=== PATIENT | female | born 1995 | race Caucasian/White ===

== ENCOUNTER 2020-08-11 20:55 | Emergency (ER) | payer OTHER, SELFPAY ==
--- NOTE | ~2020-08-11 | XR_ITS ---
EXAMINATION: XR chest 1V portable INDICATION: Shortness of breath and chest pain TECHNIQUE: Portable AP chest at 2224 hours COMPARISON: None available FINDINGS: Patchy bilateral airspace opacities are present. There is no pleural effusion or pneumothor ax. The cardiomediastinal silhouette is normal. The visualized osseous structures are unremarkable. IMPRESSION: 1. Patchy bilateral airspace opacities, consistent with atelectasis versus pneumonia. Reviewed, dictated and finalized at location A. IMPRESSION: 1. Patchy bilateral airspace opacities, consistent with atelectasis versus pneu monia.
[2020-08-11 20:57] VITALS: BP 139/89; PULSE 85; RESP 18; TEMP 35.8; O2SAT 100
--- NOTE | 2020-08-11 22:00 | PC.NURSE ---
assumed care of patient. report from ALIYA APONTE
--- NOTE | 2020-08-11 22:00 | ED.GENADULT ---
HPI - General Adult General Chief complaint: Unspecified Stated complaint: cold symptoms. Time Seen by Provider: 08/11/20 21:21 History of Present Illness HPI narrative: Patient is a 25-year-old female who presents ER with concern for possible infection. Reports she has been having body aches and feeling fatigued for the last 3 days. 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 She also reports she has been having frequent urination also experiencing incontinence of her urine. This is without an increased fluid intake. Denies dysuria. Patient reports emesis x1 in the last 4days that was not associate with coughing. She reports occasional dry cough but nothing persistent. She is without shortness of breath. Related Data Home Medications Medication Instructions Recorded Confirmed levothyroxine 100 mcg PO BID 08/11/20 Allergies Allergy/AdvReac Type Severity Reaction Status Date / Time No Known Allergies Allergy Unverified 08/11/20 21:00 Review of Systems Review of Systems: All systems reviewed & are unremarkable except as noted in HPI and below Constitutional: Constitutional: Reports body ache(s), Denies chills and Denies fever(s) ENT: Reports nasal congestion and Reports sore throat Respiratory: Respiratory: Denies change in phlegm color, Reports cough, Denies dyspnea and Denies wheezing Gastrointestinal: Gastrointestinal: Denies diarrhea, Denies nausea and Reports vomiting Genitourinary: Genitourinary: Reports nocturia, Denies dysuria and Reports urinary incontinence [facility] Past Medical History Medical History (Updated 08/11/20 @ 22:57 by Ji Hoang MD) Anxiety Depression Social History Social History Gender identity (if verbalized by the patient): Female Sexual Orientation (if Verbalized by the Patient): Straight or Heterosexual Exam Narrative: Exam Narrative: GENERAL: Well-appearing, obese, and in no acute distress. HEAD: Normocephalic, atraumatic. CHEST: Clear to auscultation. No respiratory distress. HEART: Regular rate and rhythm. Normal peripheral pulses. EXTREMITIES: Normal range of motion. No edema. SKIN: Warm, dry, no rash. NEURO: Alert and oriented x3. PSYCH: Normal mood and affect. Course Course Emergency Course: Patient informed of results. Will start on a Z-Jeffery given that patient is a PUI and could have required pneumonia. Discussed that she should self isolate until cleared by the health department or testing negative. Patient verbalized understanding. Vital Signs Vital signs: Vital Signs Temperature 96.5 F L 08/11/20 20:57 Pulse Rate 85 08/11/20 20:57 Respiratory Rate 18 08/11/20 20:57 Blood Pressure 139/89 08/11/20 20:57 Pulse Oximetry 100 08/11/20 20:57 Temperature 96.5 F L 08/11/20 20:57 Pulse Rate 85 08/11/20 20:57 Respiratory Rate 18 08/11/20 20:57 Blood Pressure 139/89 08/11/20 20:57 Pulse Oximetry 100 08/11/20 20:57 Medical Decision Making Vital Signs Vital Signs: Vital Signs Temperature 96.5 F L 08/11/20 20:57 Pulse Rate 85 08/11/20 20:57 Respiratory Rate 18 08/11/20 20:57 Blood Pressure 139/89 08/11/20 20:57 Pulse Oximetry 100 08/11/20 20:57 Temperature 96.5 F L 08/11/20 20:57 Pulse Rate 85 08/11/20 20:57 Respiratory Rate 18 08/11/20 20:57 Blood Pressure 139/89 08/11/20 20:57 Pulse Oximetry 100 08/11/20 20:57 Lab Data Labs: Lab Results 08/11/20 Range/Units 21:54 Urine Color Yellow (Yellow) Urine Appearance Cloudy H (Clear) Urine pH 7.0 (5.0-9.0) Ur Specific [place] 1.024 (1.001-1.035) Urine Protein 1+ H (Negative) mg/dL Urine Glucose (UA) Negative (Negative) mg/dL Urine Ketones Negative (Negative) mg/dL Ur Blood (Man) Negative (Negative) Urine Nitrate Negative (Negative) Urine Bilirubin Negative (Negative) Urine Urobilinogen Negative (<2.0) mg/dL Leukocyte Esterase R
[2020-08-11 22:07] LABS: Add Urine Microscopic? YES; Appearance Urine Cloudy (Clear); Bacteria Urine Trace /hpf; Bilirubin Urine Negative (Negative); Blood Urine Negative (Negative); Color Urine Yellow (Yellow); Glucose Urine UA Negative (Negative); Ketones Urine Negative (Negative); Leukocyte Esterase Ur Negative LEU/UL (Negative); Mucus Urine Few /lpf; Nitrate Urine Negative (Negative); Protein Urine 1+ mg/dL (Negative); RBC Urine 0-2 /hpf (0-2); Specific Grav Ur 1.024 (1.001-1.035); Squamous Epithelial Cell Urine Moderate /hpf (Few); Urobilinogen Urine Negative mg/dL (<2.0)
[2020-08-11 23:15] VITALS: BP 141/100; PULSE 84; RESP 20; O2SAT 100
[2020-08-12 17:57] LABS: SARS-CoV-2 RNA PCR Negative
== END 2020-08-11 23:17 | disposition home or self-care (01) ==
PROVIDERS: Emergency Provider Emergency Medicine
DX: J18.9 Pneumonia, unspecified organism (principal); Z20.822 Contact with and (suspected) exposure to COVID-19
CPT/HCPCS: 71045; 81001; 99283; C9803; U0003; U0005

== ENCOUNTER 2020-09-25 10:53 | Emergency (ER) | payer OTHER, SELFPAY ==
--- NOTE | ~2020-09-25 | XR_ITS ---
EXAMINATION: XR chest 2V DATE: 09/25/2020 11:25 INDICATION: Shortness of breath TECHNIQUE: PA and lateral views of the chest were obtained. COMPARISON: Chest radiograph dated 08/11/2020 FINDINGS: The lungs remain clear with no focal airspace opacities, pulmonary edema, pleural effusion or pneumot horax. The cardiomediastinal silhouette is normal. Visualized bones and soft tissues are unremarkable . IMPRESSION: 1. No acute cardiopulmonary disease. Reviewed, dictated and finalized at location A.
[2020-09-25 10:58] VITALS: BP 141/68; PULSE 76; RESP 24; TEMP 36.9; O2SAT 100
--- NOTE | 2020-09-25 11:00 | ECG_ITS ---
Measurements Intervals [place] Rate: 69 P: 27 W[place]: 163 QRS: 52 QRSD: 90 T: 29 QT: 404 QTc: 435 Interpretive Statements SINUS RHYTHM WITH SINUS ARRHYTHMIA BASELINE ARTIFACT- I, II, III, AVR, AVL, AVF, V3-V6 NORMAL ECG Electronically Signed On 09-25-2020 12:08:50 CDT by Willian Philip D.O.
[2020-09-25 11:14] LABS: Basophils Percent Auto 0.2 % (0.2-1.2); Eosinophils Absolute Auto 0.2 K/mm3 (0-0.3); Eosinophils Percent Auto 1.6 % (0-4.4); Hematocrit 37.3 % (37.0-47.0); Hemoglobin 11.8 g/dL (12.0-15.0); Immature Granulocyte Absolute 0.04 K/mm3 (0.00-0.031); Immature Granulocyte Percent A 0.4 % (0-0.5); Lymphocytes Absolute Auto 2.35 K/mm3 (0.9-3.2); Lymphocytes Percent Auto 22.1 % (18.3-44.2); Mean Corpuscular HGB Conc 31.6 g/dl (32-36); Mean Corpuscular Hemoglobin 24.5 pg (26-34); Mean Corpuscular Volume 77.5 fl (80-100); Mean Platelet Volume 9.9 fl (7.4-10.4); Monocytes Absolute Auto 0.6 K/mm3 (0.1-0.6); Monocytes Percent Auto 5.7 % (2.6-8.5); Neutrophils Absolute Auto 7.4 K/mm3 (1.3-6.7); Platelet Count Result 240 k/mm3 (150-375); Red Blood Count 4.81 M/mm3 (4.2-5.4); Red Cell Distribution Width 15.4 % (11.5-14.5); White Blood Count 10.6 K/mm3 (4.5-10.0)
[2020-09-25 11:26] LABS: Anion Gap 6 mmol/L (8-16); Blood Urea Nitrogen 14 mg/dL (7-17); Calcium 9.4 mg/dL (8.4-10.2); Carbon Dioxide 26 mmol/L (22-30); Chloride 108 mmol/L (98-107); Estimated CRCL calculation 124 ml/min; Estimated Glomerular Filt Rate > 60; Glucose 84 mg/dL (65-105); Potassium 3.6 mmol/L (3.4-5.0); Sodium 140 mmol/L (137-145)
[2020-09-25 11:38] LABS: Troponin I < 0.012 ng/mL (0.000-0.034)
[2020-09-25 11:43] LABS: Prothrombin Time 13.3 Seconds (11.1-14.7)
[2020-09-25 11:44] LABS: Partial Thromboplastin Time 29.4 SECONDS (22.3-36.8)
[2020-09-25] MEDS: KETOROLAC (*BKC) 60 MG/2 ML VIAL IM (12:21)
[2020-09-25 12:25] VITALS: BP 121/93; PULSE 60; RESP 18; TEMP 36.3; O2SAT 100
[2020-09-25 13:37] VITALS: BP 110/75; PULSE 56; RESP 18; TEMP 36.3; O2SAT 100
--- NOTE | 2020-09-25 13:41 | ED.GENADULT ---
HPI - General Adult General Chief complaint: Shortness of Breath/Dyspnea Stated complaint: cp, sob Time Seen by Provider: 09/25/20 11:02 Source: patient and RN notes reviewed Mode of arrival: ambulatory Limitations: no limitations History of Present Illness HPI narrative: Patient a 25-year-old female who presents to emergency department for evaluation of left upper chest discomfort that began while at work today worse with deep breathing. Patient notes she had vomiting yesterday after being intoxicated but those symptoms have resolved. Patient denies any URI symptoms and has not taken anything for her discomfort Related Data Home Medications Medication Instructions Recorded Confirmed levothyroxine 100 mcg PO BID 08/11/20 Allergies Allergy/AdvReac Type Severity Reaction Status Date / Time acetaminophen [From Vicodin] AdvReac Vomiting Verified 09/25/20 11:06 hydrocodone [From Vicodin] AdvReac Vomiting Verified 09/25/20 11:06 Review of Systems Review of Systems: All systems reviewed & are unremarkable except as noted in HPI and below PMFSH Past Medical History Medical History Anxiety Depression Social History Social History Gender identity (if verbalized by the patient): Female Exam Narrative: Exam Narrative: GENERAL: Well-appearing, obese, and in no acute distress. HEAD: Normocephalic, atraumatic. EYES: PERRLA and EOMI. ENT: Nares clear, no rhinorrhea or epistaxis. Mucous membranes moist. Oropharynx without tonsillar hypertrophy exudate or other lesions. NECK: Supple. No adenopathy or masses. CHEST: Clear to auscultation. No respiratory distress. No wheezes rales or rhonchi. Tenderness of the left upper chest wall no deformities HEART: Regular rate and rhythm. No murmur heard. Normal peripheral pulses. ABDOMEN: Soft, nontender, nondistended EXTREMITIES: Normal range of motion. No edema. SKIN: Warm, dry, no rash. NEURO: No focal deficits. Alert and oriented x3. PSYCH: Normal mood and affect. Course Course Emergency Course: Patient evaluated in the emergency department reproducible chest wall tenderness no high risk changes in the blood work or imaging will be discharged home placed on anti-inflammatories given reasons to follow-up Vital Signs Vital signs: Vital Signs Temperature 98.5 F 09/25/20 10:58 Pulse Rate 76 09/25/20 10:58 Respiratory Rate 24 H 09/25/20 10:58 Blood Pressure 141/68 H 09/25/20 10:58 Pulse Oximetry 100 09/25/20 10:58 Temperature 97.3 F L 09/25/20 13:37 Pulse Rate 56 L 09/25/20 13:37 Respiratory Rate 18 09/25/20 13:37 Blood Pressure 110/75 09/25/20 13:37 Pulse Oximetry 100 09/25/20 13:37 Medical Decision Making MDM Narrative Medical decision making narrative: Patients EKGs and labs are without significant high risk changes. Cardiac risk factors were reviewed. Patient is felt likely to be low risk for ACS and reasonable for further risk stratification testing as an outpatient. Pain was not sudden or maximal in onset without tearing or ripping. quality. No other signs or symptoms to suggest aortic dissection. A low-risk Wells criteria is noted. PE is felt to be unlikely. No pneumonia or URI symptoms were seen on evaluation today. Patient is felt to b reasonable for continued evaluation as an outpatient. Medical Records Medical records narrative: ITS Impressions Chest X-Ray 09/25/20 11:44 IMPRESSION: 1. No acute cardiopulmonary disease. Vital Signs Vital Signs: Vital Signs Temperature 98.5 F 09/25/20 10:58 Pulse Rate 76 09/25/20 10:58 Respiratory Rate 24 H 09/25/20 10:58 Blood Pressure 141/68 H 09/25/20 10:58 Pulse Oximetry 100 09/25/20 10:58 Temperature 97.3 F L 09/25/20 13:37 Pulse Rate 56 L 09/25/20 13:37 Respiratory Rate 18 09/25/20 13:37 Blood Pressure 110/75 09/25/20 13:37
== END 2020-09-25 13:58 | disposition home or self-care (01) ==
PROVIDERS: Emergency Provider Emergency Medicine
DX: R07.89 Other chest pain (principal)
CPT/HCPCS: 36415; 71046; 80048; 84484; 85025; 85610; 85730; 93005; 96372; 99284; J1885

== ENCOUNTER 2021-07-14 08:05 | Emergency (ER) | payer OTHER, SELFPAY ==
[2021-07-14] VITALS (18 sets, daily range): BP systolic 106–134; BP diastolic 64–84; PULSE 41–78; RESP 10–23; O2SAT 98–100
[2021-07-14] MEDS: SODIUM CHLORIDE 0.9% IV 1,000 ML 999 ML IV CONT (08:41)
[2021-07-14 08:42] LABS: Basophils Percent Auto 0.3 % (0.2-1.2); Eosinophils Absolute Auto 0.1 K/mm3 (0-0.3); Eosinophils Percent Auto 1.8 % (0-4.4); Hematocrit 38.4 % (37.0-47.0); Hemoglobin 12.9 g/dL (12.0-15.0); Immature Granulocyte Absolute 0.02 K/mm3 (0.00-0.031); Immature Granulocyte Percent A 0.3 % (0-0.5); Lymphocytes Absolute Auto 1.73 K/mm3 (0.9-3.2); Lymphocytes Percent Auto 25.4 % (18.3-44.2); Mean Corpuscular HGB Conc 33.6 g/dl (32-36); Mean Corpuscular Hemoglobin 28.8 pg (26-34); Mean Corpuscular Volume 85.7 fl (80-100); Mean Platelet Volume 11.7 fl (7.4-10.4); Monocytes Absolute Auto 0.4 K/mm3 (0.1-0.6); Monocytes Percent Auto 5.1 % (2.6-8.5); Neutrophils Absolute Auto 4.6 K/mm3 (1.3-6.7); Neutrophils Percent Auto 67.1 % (45.5-73.1); Platelet Count Result 180 k/mm3 (150-375); Red Blood Count 4.48 M/mm3 (4.2-5.4); Red Cell Distribution Width 14.6 % (11.5-14.5); White Blood Count 6.8 K/mm3 (4.5-10.0)
[2021-07-14] MEDS: KETOROLAC 30 MG/ML VIAL (*BKC) IV PUSH (08:42)
[2021-07-14 08:53] LABS: Alanine Aminotransferase 25 U/L (4-35); Alkaline Phosphatase 55 U/L (38-126); Anion Gap 7 mmol/L (8-16); Aspartate Amino Transferase 33 U/L (14-36); Blood Urea Nitrogen 8 mg/dL (7-17); Calcium 8.9 mg/dL (8.4-10.2); Carbon Dioxide 22 mmol/L (22-30); Chloride 110 mmol/L (98-107); Estimated CRCL calculation 111 ml/min; Estimated Glomerular Filt Rate > 60; Glucose 92 mg/dL (65-110); Potassium 3.9 mmol/L (3.4-5.0); Sodium 139 mmol/L (137-145)
--- NOTE | 2021-07-14 10:46 | ED.FEMALEGU ---
HPI - Female Genitourinary General Chief complaint: Vaginal Bleeding Stated complaint: vaginal bleeding Time Seen by Provider: 07/14/21 08:22 History of Present Illness HPI Narrative: Patient is a 26-year-old female who presents ER with vaginal bleeding. Started her cycle 2 days ago. Started having increased bleeding with clots this morning. No chest pain or shortness of breath. She is not on any blood thinners She goes to the [facility] for her gynecologic care. She does not think that she is . LMP was 1 month ago. Related Data Home Medications Medication Instructions Recorded Confirmed levothyroxine 100 mcg PO BID 08/11/20 Allergies Allergy/AdvReac Type Severity Reaction Status Date / Time acetaminophen [From Vicodin] AdvReac Vomiting Verified 09/25/20 11:06 hydrocodone [From Vicodin] AdvReac Vomiting Verified 09/25/20 11:06 Review of Systems Review of Systems: All systems reviewed & are unremarkable except as noted in HPI and below Constitutional: Constitutional: Denies chills and Denies fatigue Gastrointestinal: Gastrointestinal: Reports abdominal pain, Denies diarrhea, Denies nausea and Denies vomiting Genitourinary: Genitourinary: Reports abnormal vaginal bleeding, Denies nocturia, Denies dysuria and Denies flank pain Neurologic: Denies dizziness, Denies syncope and Denies numbness PMFSH Past Medical History Medical History (Updated 07/14/21 @ 10:52 by Ji Hoang MD) Anxiety Depression Surgical History Surgical History (Updated 07/14/21 @ 10:52 by Ji Hoang MD) H/O gastric bypass Social History Social History Gender identity (if verbalized by the patient): Female Sexual Orientation (if Verbalized by the Patient): Straight or Heterosexual Exam Narrative: GENERAL: Well-appearing, well-nourished, and in no acute distress. HEAD: Normocephalic, atraumatic. CHEST: Clear to auscultation. No respiratory distress. HEART: Regular rate and rhythm. Normal peripheral pulses. ABDOMEN: Soft, nontender, nondistended. : Normal external genitalia. Vaginal vault with moderate amount of dark blood. Once the field was cleared cervix was visualized and was closed without any lesions and no active bleeding. No discharge noted. EXTREMITIES: Normal range of motion. No edema. SKIN: Warm, dry, no rash. NEURO: Alert and oriented x3. PSYCH: Normal mood and affect. Course Course Emergency Course: Labs unremarkable. Asymptomatic during orthostatic vital signs. 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 Vital Signs Vital signs: Vital Signs Pulse Rate 63 07/14/21 08:09 Respiratory Rate 18 07/14/21 08:09 Blood Pressure 122/70 07/14/21 08:09 Pulse Oximetry 100 07/14/21 08:09 Pulse Rate 41 L 07/14/21 10:15 Respiratory Rate 14 07/14/21 10:15 Blood Pressure 118/67 07/14/21 10:02 Pulse Oximetry 99 07/14/21 10:15 MDM - Female Genitourinary Lab Data Result diagrams: 07/14/21 08:35 07/14/21 08:35 Labs: Lab Results 07/14/21 07/14/21 07/14/21 Range/Units 08:35 08:35 08:35 WBC 6.8 (4.5-10.0) K/mm3 RBC 4.48 (4.2-5.4) M/mm3 Hgb 12.9 (12.0-15.0) g/dL Hct 38.4 (37.0-47.0) % MCV 85.7 (80-100) fl MCH 28.8 (26-34) pg MCHC 33.6 (32-36) g/dl RDW 14.6 H (11.5-14.5) % Plt Count 180 (150-375) k/mm3 MPV 11.7 H (7.4-10.4) fl Immature Gran % (Auto) 0.3 (0-0.5) % Neut % (Auto) 67.1 (45.5-73.1) % Lymph % (Auto) 25.4 (18.3-44.2) % [place] % (Auto) 5.1 (2.6-8.5) % Eos % (Auto) 1.8 (0-4.4) % Baso % (Auto) 0.3 (0.2-1.2) % Lymph # (Auto) 1.73 (0.9-3.2) K/mm3 [place] # (Auto) 0.4 (0.1-0.6) K/mm3 Eos # (Auto) 0.1 (0-0.3) K/mm3 Baso # (Auto) 0.0 (0.0-0.1) K/mm3 Abs Immat Gran (auto) 0.02 (0.00-0.031) K/mm3 Absolute Neuts (auto) 4.6 (1.3-6
== END 2021-07-14 11:03 | disposition home or self-care (01) ==
PROVIDERS: Emergency Provider Emergency Medicine
DX: N92.0 Excessive and frequent menstruation with regular cycle (principal); Z98.84 Bariatric surgery status
CPT/HCPCS: 36415; 80053; 85025; 86850; 86900; 86901; 96361; 96374; 99284; J1885; J7030

== ENCOUNTER 2022-07-06 13:06 | Observation (INO) | payer OTHER, SELFPAY ==
[2022-07-06 13:30] VITALS: BP 114/78; PULSE 65; BMI 33.5
[2022-07-06 13:36] VITALS: PULSE 57; O2SAT 98
[2022-07-06 13:41] VITALS: PULSE 68; O2SAT 100
[2022-07-06 13:45] VITALS: BP 114/78; PULSE 60
[2022-07-06 13:46] VITALS: PULSE 65; O2SAT 99
--- NOTE | 2022-07-06 13:48 | LDADM ---
This patient, Precious Acharya, was admitted to Labor/Delivery/Recovery 120 on 07/06/22 at 13:06. Plans for labor, pain management and were discussed with patient. Patient/family oriented to hospital policies and general routines including ID bracelet, bed and alarms, visiting hours, pain management, procedures, bathroom and other care routines, personal items, smoking policy, room service/diet and guest tray routines, infant security routines, and visiting hours. Patient/Family are encouraged to report perceived risks to care and to ask questions if they do not understand what they are told or what they should do. See OBIX for further documentation.
[2022-07-06 13:51] VITALS: PULSE 64; O2SAT 98
--- NOTE | 2022-07-06 13:57 | PC.NURSE ---
Patient came in with complaints of shortness of breath and tingling in her arms and fingers. Patient states she was standing in her kitchen when she became short of breath and fell backwards onto her bottom. Reactive NST, maternal VS WNL. Patient appears very anxious. Called Dr. Lao at 1321 and verbal orders given for 0.5 mg PO Xanax and to continue to monitor. Patient refused Xanax and states she does not feel this is anxiety induced and would like to see a doctor. Called Dr. Lao back with new updates. Verbal orders placed to discharge patient from OB to be seen in ER for continued shortness of breath. Patient now states she has no shortness of breath and does not wish to be seen in the ER. OB discharge instructions given to patient with OB recommendation to be seen in the ER. Patient verbalizes understanding and has no questions at this time.
--- NOTE | 2022-08-02 21:24 | PM.OBTRLD ---
OB - Triage/Final Diagnosis Visit Information Comments/Additional reasons for admission: I have assessed the risk for this patient, Precious Asaf Acharya, and determined that she would benefit from observation care. Final Diagnosis (1) Dyspnea: Code(s): R06.00 - Dyspnea, unspecified Status: Acute
== END 2022-07-06 14:10 | disposition home or self-care (01) ==
PROVIDERS: Admitting Provider Obstetrics & Gynecology; Visit Provider Obstetrics & Gynecology
DX: O26.893 Other specified pregnancy related conditions, third trimester (principal); R06.02 Shortness of breath; Z3A.37 37 weeks gestation of pregnancy
CPT/HCPCS: 59025; G0378; G0379

== ENCOUNTER 2022-07-08 16:35 | Outpatient (CLI) | payer OTHER, SELFPAY ==
[2022-07-08 17:25] VITALS: BP 112/82; PULSE 88; RESP 18; O2SAT 100
== END 2022-07-08 17:26 | disposition home or self-care (01) ==
LOC: ANHOBOP 17:13
PROVIDERS: Visit Provider Obstetrics & Gynecology
DX: O42.90 Premature rupture of membranes, unspecified as to length of time between rupture and onset of labor, unspecified weeks of gestation (principal); Z3A.00 Weeks of gestation of pregnancy not specified
CPT/HCPCS: 59025; 84112

== ENCOUNTER 2022-07-17 10:11 | Outpatient (RCR) | payer OTHER, SELFPAY ==
--- NOTE | ~2022-07-17 | US_ITS ---
EXAMINATION: US OB BPP wo non-stress DATE: 07/17/2022 12:09 INDICATION: Decreased movement during third trimester TECHNIQUE: Real-time pelvic ultrasound was performed. The interpreting radiologist was not present fo r the study. COMPARISON: None. FINDINGS: There is a single living fetus in vertex presentation. The placenta is anterior. Cervical length zayra sures at least 4 cm. heart rate is 147 beats per minute (bpm). Amniotic fluid index measures 8. 4 cm which is normal (5th%-95%: 7.2-22.6 cm at 38 weeks estimated gestational age) Biophysical profile performed by the technologist: breathing (30 sec sustained breathing in 30 minutes): 2 out of 2 movement (3 gross body movements in 30 minutes): 2 out of 2 tone (one episode of ecphqja-wtqbpzsfg-hktazoj limb movement): 2 out of 2 Amniotic fluid pocket (2 cm): 2 out of 2 Total score: 8 out of 8 IMPRESSION: 1. Single living fetus in vertex presentation with heart rate of 147 bpm. 2. Biophysical profile 8 out of 8. 2. Normal amniotic fluid index of 8.4 cm . Reviewed, dictated and finalized at location B.
[2022-07-17 12:15] VITALS: BP 118/73
== END 2022-08-25 15:11 | disposition home or self-care (01) ==
LOC: ANHOBOP 10:11
PROVIDERS: Visit Provider Obstetrics & Gynecology
DX: O36.8130 Decreased fetal movements, third trimester, not applicable or unspecified (principal); Z3A.38 38 weeks gestation of pregnancy
CPT/HCPCS: 59025; 76819

== ENCOUNTER 2022-07-18 05:25 | Inpatient (IN) | payer OTHER, SELFPAY ==
[2022-07-18] VITALS (42 sets, daily range): BP systolic 94–114; BP diastolic 50–72; PULSE 47–72; RESP 12–18; TEMP 36.2–36.8; O2SAT 96–100; BMI 33.2
--- NOTE | 2022-07-18 05:25 | LDADM ---
This patient, Precious Acharya, was admitted to Labor/Delivery/Recovery 120 on 07/18/22 at 05:25. Plans for labor, pain management and were discussed with patient. Patient/family oriented to hospital policies and general routines including ID bracelet, bed and alarms, visiting hours, pain management, procedures, bathroom and other care routines, personal items, smoking policy, room service/diet and guest tray routines, infant security routines, and visiting hours. Patient/Family are encouraged to report perceived risks to care and to ask questions if they do not understand what they are told or what they should do. See OBIX for further documentation.
[2022-07-18] MEDS: LACTATED RINGERS 1,000 ML 125 ML IV CONT ×2 (05:55→07:23)
[2022-07-18 06:09] LABS: Basophils Percent Auto 0.2 % (0.2-1.2); Eosinophils Absolute Auto 0.1 K/mm3 (0-0.3); Eosinophils Percent Auto 0.9 % (0-4.4); Hematocrit 32.5 % (37.0-47.0); Hemoglobin 10.6 g/dL (12.0-15.0); Immature Granulocyte Absolute 0.05 K/mm3 (0.00-0.031); Immature Granulocyte Percent A 0.6 % (0-0.5); Lymphocytes Absolute Auto 2.08 K/mm3 (0.9-3.2); Lymphocytes Percent Auto 22.9 % (18.3-44.2); Mean Corpuscular HGB Conc 32.6 g/dl (32-36); Mean Corpuscular Volume 82.7 fl (80-100); Mean Platelet Volume 8.9 fl (7.4-10.4); Monocytes Absolute Auto 0.4 K/mm3 (0.1-0.6); Monocytes Percent Auto 4.7 % (2.6-8.5); Neutrophils Absolute Auto 6.4 K/mm3 (1.3-6.7); Neutrophils Percent Auto 70.7 % (45.5-73.1); Platelet Count Result 224 k/mm3 (150-375); Red Blood Count 3.93 M/mm3 (4.2-5.4); Red Cell Distribution Width 13.5 % (11.5-14.5); White Blood Count 9.1 K/mm3 (4.5-10.0)
[2022-07-18 06:35] LABS: Rapid Plasma Reagin Non-Reactive (NonReactive)
--- NOTE | 2022-07-18 07:01 | WPDANESEPPF ---
Anes - Initial Pre Proc Eval Procedure: Operation Date: 07/18/22 07:30 Proposed Procedures p Repeat Section - Kenya Nye MD Date/Time: 07/18/22 07:01 Surgeon: Marko Lao MD Pre Op Diagnosis: C/S Patient Data Age: 27 Gender: F Height: 1.6 m Weight: 85 kg Last Vital Signs Pulse 59 L 07/18/22 06:44 BP 114/72 07/18/22 06:44 Allergies Allergy/AdvReac Type Severity Reaction Status Date / Time hydrocodone [From Vicodin] AdvReac Vomiting Verified 09/25/20 11:06 Home Medications Medication Instructions Recorded Confirmed Type levothyroxine 75 mcg tablet 100 mcg PO BID 08/11/20 History prenat.vits,kimber,[id number] 1 tablet PO DAILY 06/28/22 06/28/22 History Laboratory Tests 07/18/22 07/18/22 07/18/22 05:38 05:38 05:38 WBC 9.1 K/mm3 K/mm3 (4.5-10.0) RBC 3.93 M/mm3 L M/mm3 (4.2-5.4) Hgb 10.6 g/dL L g/dL (12.0-15.0) Hct 32.5 % L % (37.0-47.0) MCV 82.7 fl fl (80-100) MCH 27.0 pg pg (26-34) MCHC 32.6 g/dl g/dl (32-36) RDW 13.5 % % (11.5-14.5) Plt Count 224 k/mm3 k/mm3 (150-375) MPV 8.9 fl fl (7.4-10.4) Immature Gran % (Auto) 0.6 % H % (0-0.5) Neut % (Auto) 70.7 % % (45.5-73.1) Lymph % (Auto) 22.9 % % (18.3-44.2) [place] % (Auto) 4.7 % % (2.6-8.5) Eos % (Auto) 0.9 % % (0-4.4) Baso % (Auto) 0.2 % % (0.2-1.2) Lymph # (Auto) 2.08 K/mm3 K/mm3 (0.9-3.2) [place] # (Auto) 0.4 K/mm3 K/mm3 (0.1-0.6) Eos # (Auto) 0.1 K/mm3 K/mm3 (0-0.3) Baso # (Auto) 0.0 K/mm3 K/mm3 (0.0-0.1) Abs Immat Gran (auto) 0.05 K/mm3 H K/mm3 (0.00-0.031) Absolute Neuts (auto) 6.4 K/mm3 K/mm3 (1.3-6.7) Absolute Nucleated RBC 0.0 K/mm3 K/mm3 (0.0-0.012) Nucleated RBC % 0.0 % % (0.0-0.2) RPR Non-reactive (NonReactive) Blood Type O Positive Antibody Screen Negative Patient hx anesthesia problems: post op nausea/vomiting Family hx anesthesia problems: none Results Review: All pre-operative results and documents have been reviewed as part of the pre-operative evaluation. [facility] Past Medical History Medical History Anxiety Depression Hypothyroid Surgical History Surgical History H/O gastric bypass Social History Social History Smoking status: Never smoker Substance use: current Other substance usage details: daily Last use: [id number] Lack of Transportation: No Lack of Food: Never True Current Housing: I Have Housing Concerned About Future Housing: No Difficulty Paying Gas/Electric Bills: No Difficulty Paying for Meds: No Currently Unemployed: No Education: High School Diploma/GED Difficulty w/ Childcare or Family Care: No Gender identity (if verbalized by the patient): Female Sexual Orientation (if Verbalized by the Patient): Straight or Heterosexual Spiritual care concerns: No Anes - Eval Final PreProcedure Day of Procedure 07/18/22 07:01 Patient weight: obese Heart: regular rate and rhythm Lungs: clear to auscultation Airway: Mallampati scale class II Neurological: alert and oriented Last oral intake: >/= 8 hours ASA classification: III Emergent: no Anesthetic plan: proceed Anesthesia type and monitoring: regional spinal and standard monitoring Results Review: All pre-operative results and documents have been reviewed as part of the pre-operative evaluation. Informed Consent: The patient's anesthetic plan and its attendant risks and benefits were discussed with the patient/family/POA. Questions were solicited and answers provided to the satisfaction of the patient/family/P
--- NOTE | 2022-07-18 07:20 | PM.IMHP ---
H&P: HPI History of Present Illness Date/Time: 07/18/22 07:20 Chief Complaint: Repeat section Narrative: Precious is a 27yo at 39.0 for repeat CS. has been complicated by anemia, pyelectasis, hypothyroidism, h/o gastric sleeve, h/o LEEP, h/o PreE prior , and anxiety on zoloft. Review of Systems Review of Systems: All systems reviewed & are unremarkable except as noted in HPI and below PMFSH Past Medical History Medical History Anxiety Depression Hypothyroid Surgical History Surgical History H/O gastric bypass Social History Social History Smoking status: Never smoker Substance use: current Other substance usage details: daily Last use: [id number] Lack of Transportation: No Lack of Food: Never True Current Housing: I Have Housing Concerned About Future Housing: No Difficulty Paying Gas/Electric Bills: No Difficulty Paying for Meds: No Currently Unemployed: No Education: High School Diploma/GED Difficulty w/ Childcare or Family Care: No Gender identity (if verbalized by the patient): Female Sexual Orientation (if Verbalized by the Patient): Straight or Heterosexual Spiritual care concerns: No Meds Home Medications and Allergies Home Medications Medication Instructions Recorded Confirmed Type levothyroxine 75 mcg tablet 100 mcg PO BID 08/11/20 History prenat.vits,kimber,[id number]-mrglo 1 tablet PO DAILY 06/28/22 06/28/22 History Allergies Allergy/AdvReac Type Severity Reaction Status Date / Time hydrocodone [From Vicodin] AdvReac Vomiting Verified 09/25/20 11:06 Vital Signs Vital Signs - 24 hr 07/18/22 05:49 07/18/22 06:44 Pulse Rate 63 59 L Blood Pressure 112/69 114/72 Exam Const: General: no acute distress Resp: Effort & Inspection: normal respiratory effort Auscultation: clear to auscultation bilaterally Cardio: Rate: regular rate Rhythm: regular rhythm GI: GI Palp: Yes Soft to palpation Extrem: General: normal to inspection H&P: Results Labs Labs: Short CBC 07/18/22 Range/Units 05:38 WBC 9.1 (4.5-10.0) K/mm3 Hgb 10.6 L (12.0-15.0) g/dL Hct 32.5 L (37.0-47.0) % Plt Count 224 (150-375) k/mm3 Assessment and Plan Assessment and plan (1) History of delivery: Code(s): Z98.891 - History of uterine scar from previous surgery Status: Acute Plan consented for repeat section, discussed RBA, will proceed.
--- NOTE | 2022-07-18 07:23 | WPDHPUPDATE1 ---
History and Physical Update Update Date/Time: 07/18/22 07:23 History and Physical has been reviewed, including an updated exam of the patient. There are NO changes in the patient's condition. Risks, benefits, and alternatives have been discussed and questions answered. Patient agrees to proceed with procedure.
[2022-07-18] MEDS: ceFAZolin 2 GM/D5W 50 ML 2 GM/50 ML BAG IVPB (07:29)
[2022-07-18 07:56] LABS: Amphetamine Screen Urine Negative (Negative); Barbiturate Screen Urine Negative (Negative); Benzodiazepines Screen Urine Negative (Negative); Cannabinoid Screen Urine Positive (Negative); Cocaine Screen Urine Negative (Negative); Methadone Screen Urine Negative (Negative); Opiate Screen Urine Negative (Negative); Phencyclidine Screen Urine Negative (Negative)
--- NOTE | 2022-07-18 08:39 | PM.OBPRVD ---
OB - Delivery Note Procedure Delivery date: 07/18/22 Procedure: Procedures Operation Date: 07/18/22 07:30 <No data on this case meets the specified criteria> Repeat section Events: Previous Delivery Route of delivery: Specimen: Yes (placenta) Quantitative Blood Loss (ml): 470 Anesthesia type: Spinal Disposition: Floor Complications: none Narrative: The patient was taken to the OR and received spinal anesthesia. She was placed in dorsal supine position with left lateral tilt. SCDs and lobato were placed. She was prepped and draped in the normal sterile fashion. A Pfannensteil skin incision was made and carried through to the underlying layer of fascia. The fascia was incised in the midline and then extended laterally using Miranda scissors. The muscles were in the midline and the peritoneum was entered bluntly. The peritoneal incision was extended inferiorly and superiorly with care to avoid the bladder. The bladder blade was then inserted, the vesicouterine peritoneum was grasped, incised with Metzenbaum scissors, and a bladder flap created. The bladder blade was reinserted. A low transverse uterine incision was made with a scalpel and extended bluntly. AROM was performed and fluid was noted to be clear. The head was delivered, followed by the remainder of the baby. The baby's oropharynx was suctioned. After 30 seconds, the cord was clamped and cut and the was handed off. Cord blood was obtained and the placenta was then removed manually. The uterus was exteriorized. A moist lap sponge was used to curette the endometrium. The uterine incision was then closed with one layer of 0-Vicryl in a running, locking fashion. One figure of eight suture was placed at the left lateral aspect. Good hemostasis was then noted. The posterior cul de sac was irrigated with normal saline and cleared of all clot and debris. The uterus was returned to the abdomen. Both lateral gutters were then irrigated. The rectus muscles were inspected and found to be hemostatic. The fascia was reapproximated using 0-Vicryl in running fashion. The subcutaneous tissue was irrigated with normal saline and made hemostatic with Bovie electrocautery. The subcutaneous tissue was reapproximated with a layer of running 2-0 plain gut. The skin was then closed with absorbable noa. Steri strips and a bandage were applied. The uterus was evacuated. The patient tolerated the procedure very well. All counts were correct. She was taken to the recovery room in good condition. Baby Date of : 07/18/22 Time of : 07:59 Weeks of gestation at delivery: 39 Infant gender: Female Weight (pounds): 5 Weight (ounces): 11 presentation: vertex Placenta delivery description: Manual Removal Cord Vessel Description: 3 Vessels and Delayed Cord Clamping score one minute: 9 score five minutes: 9
[2022-07-18] MEDS: OXYTOCIN 30 UNITS/NS 500 ML 30 UNITS/500 ML BAG 125 UNITS IV CONT (09:15)
[2022-07-18] MEDS: LACTATED RINGERS 250 ML 999 ML IVPB (09:28)
[2022-07-18] MEDS: LORATADINE 10 MG TABLET PO (11:15)
--- NOTE | 2022-07-18 12:35 | PC.NURSE ---
[id number] Introductions were made, then consulted with patient to assess needs related to after a request for assistance from Primary RN. Mother led the conversation with her?plans to feed?her and the?experience so far. Mother is attempting to latch a crying infant to the breast. Encouraged understanding of the benefits of skin to skin (demonstrating unwrapping and placing upright on her chest), to calm, reorganize, stimulating with massage touch, changing positions to encourage wakefulness, how to watch for early feeding cues, responsive feeding, feeding on demand (aiming for 8-12 times in 24 hours, about every 2-3 hours), milk production, building/maintaining a milk supply, duration of feeding, signs of adequate intake/output and how to record on the feeding sheet. Mother works well with her and is positioned laid-back and infant is allowed to calm, reorganize and seek the breast using instincts. Mother demonstrated the skill of hand expression to finger feed colostrum to her infant. Once was at the breast seeking to latch RN demonstrated the teacup hold to assist infant to latch deeply after infant attempted to latch to the nipple twice. Reviewed positioning and ear, shoulder, hip alignment, supporting the breast to facilitate a deep latch, asymmetrical latch (off-center), leading with the chin with a big, open, wide gape and body close to mother. Infant latched optimally to the right breast in cross cradle laid-back position for 10 minutes. Mother denied discomfort and feels tugging and sucking . Mother demonstrated learning detaching the infant from the breast to protect the nipple. was placed back skin to skin, then offered the left breast when crawled to the breast. Using the teacup support of the breast latched deeply and latched without pain to mother for 17 min, then the latch became pinchy and mother was instructed to use the detaching method to remove from the breast. Education given to mother of how to visualize suck/swallow ratios and listen for drinking at the breast. Infant was able to maintain latch without discomfort to mother twice. Nipple care reviewed with optimal latch and good positioning. Reviewed good handwashing when or touching the breast/nipples to prevent infection. Resources used to facilitate learning were used with the tool, mom and baby guide. Mother voiced understanding of skin to skin, stimulating with massage touch, responsive feedings, hand expressed colostrum, talking to to encourage if it has been 2 -2.5 hours since the start of the last , to call if does not latch, or if there is discomfort with . Resources provided for inpatient/outpatient with name written on the white board and the mom/baby guide. Parents voiced understanding of information, demonstrated learning and will call if there is a request for assistance. Reported to the primary RN.
[2022-07-18] MEDS: ONDANSETRON INJ 4 MG/2 ML VIAL IV PUSH (13:20)
[2022-07-18] MEDS: HYDROcodone/acetaminophen (*CRX) 10-325 MG TABLET 1 TAB PO ×2 (13:29→17:45)
[2022-07-18] MEDS: SIMETHICONE 80 MG TAB.CHEW PO (13:29)
[2022-07-18] MEDS: DEXTROSE 5%/0.45% SOD CHL 1,000 ML 125 ML IV CONT (13:50)
--- NOTE | 2022-07-18 14:33 | PC.NURSE ---
Patient transferred to post room # 288 via (stretcher/maxi air ). Support person present. Oriented to unit, room, information board, rooming in, admission packet and security measures. Patient verbalizes understanding.
[2022-07-18] MEDS: DOCUSATE SODIUM 100 MG CAPSULE PO (17:45)
[2022-07-19 00:30] VITALS: BP 106/64; PULSE 72; RESP 16; TEMP 36.6; O2SAT 100
[2022-07-19] MEDS: HYDROcodone/acetaminophen (*CRX) 10-325 MG TABLET 1 TAB PO ×6 (00:30→20:20)
[2022-07-19] MEDS: SIMETHICONE 80 MG TAB.CHEW PO ×5 (00:30→20:20)
[2022-07-19 05:13] LABS: Basophils Percent Auto 0.2 % (0.2-1.2); Eosinophils Absolute Auto 0.1 K/mm3 (0-0.3); Eosinophils Percent Auto 1.1 % (0-4.4); Hematocrit 29.2 % (37.0-47.0); Hemoglobin 9.5 g/dL (12.0-15.0); Immature Granulocyte Absolute 0.04 K/mm3 (0.00-0.031); Immature Granulocyte Percent A 0.5 % (0-0.5); Lymphocytes Absolute Auto 1.64 K/mm3 (0.9-3.2); Lymphocytes Percent Auto 19.4 % (18.3-44.2); Mean Corpuscular HGB Conc 32.5 g/dl (32-36); Mean Corpuscular Hemoglobin 26.5 pg (26-34); Mean Corpuscular Volume 81.6 fl (80-100); Monocytes Absolute Auto 0.4 K/mm3 (0.1-0.6); Neutrophils Absolute Auto 6.3 K/mm3 (1.3-6.7); Neutrophils Percent Auto 73.8 % (45.5-73.1); Platelet Count Result 199 k/mm3 (150-375); Red Blood Count 3.58 M/mm3 (4.2-5.4); Red Cell Distribution Width 13.5 % (11.5-14.5); White Blood Count 8.5 K/mm3 (4.5-10.0)
--- NOTE | 2022-07-19 07:09 | P.PNOB_ITS ---
OB - PN: Subj Subjective Date/time seen: 07/19/22 07:09 Patient comments: no complaints baby status: doing well and nursing well [place] feeding status: breast and bottle feeding Narrative: POD 1 from primary CS. Doing well. Normal lochia. Eating, ambulating, lobato out. Has voided. OB - PN: Obj Data Labs 07/19/22 04:14 Labs: Laboratory Results - last 24 hr 07/18/22 07/19/22 07:21 04:14 WBC 8.5 RBC 3.58 L Hgb 9.5 L Hct 29.2 L MCV 81.6 MCH 26.5 MCHC 32.5 RDW 13.5 Plt Count 199 MPV 9.0 Immature Gran % (Auto) 0.5 Neut % (Auto) 73.8 H Lymph % (Auto) 19.4 [place] % (Auto) 5.0 Eos % (Auto) 1.1 Baso % (Auto) 0.2 Lymph # (Auto) 1.64 [place] # (Auto) 0.4 Eos # (Auto) 0.1 Baso # (Auto) 0.0 Abs Immat Gran (auto) 0.04 H Absolute Neuts (auto) 6.3 Absolute Nucleated RBC 0.0 Nucleated RBC % 0.0 Urine Opiates Screen Negative Urine Methadone Screen Negative Ur Barbiturates Screen Negative Ur Phencyclidine Scrn Negative Ur Amphetamine Screen Negative U Benzodiazepines Scrn Negative Urine Cocaine Screen Negative U Cannabinoids Screen Positive A OB - PN A/P Assessment and Plan (1) delivery delivered: Code(s): O82 - Encounter for delivery without indication Status: Acute Plan day: 1 Plan: routine care Time Spent With Patient Time: Total time spent is greater than 50% in coordination of care (as documented) at patient's floor/unit and/or counseling patient: Exam Narrative: NAD abdomen soft, appropriately tender, incision bandaged Extremities nontender with 1+ edema
[2022-07-19 07:20] VITALS: BP 107/65; PULSE 72; RESP 16; TEMP 36.4; O2SAT 100
[2022-07-19 09:30] VITALS: PULSE 72; RESP 16; O2SAT 100
[2022-07-19] MEDS: POLYSACCHARIDE IRON COMPLEX 150 MG CAPSULE PO ×2 (09:30→16:09)
[2022-07-19] MEDS: DOCUSATE SODIUM 100 MG CAPSULE PO ×2 (09:30→16:09)
[2022-07-19] MEDS: MULTIVIT/MIN/PREN/FOL AC/IRON TABLET 1 TAB PO (09:30)
--- NOTE | 2022-07-19 10:24 | WPDANLDNPN2 ---
Anes-Prog Note L&D-Neuraxial Date/Time: 07/19/22 10:24 Neuraxial medications: intrathecal PF morphine Opiod-related complaints: none Patient feedback: Patient satisfied with post-operative pain management.
--- NOTE | 2022-07-19 10:24 | WPDANLDPN2 ---
Anes-Prog Note L&D Date/Time: 07/19/22 10:24 Comfortable throughout: section Neuraxial method: spinal Epidural/Spinal procedure site: clean & non-tender Neuro status: Neuro function grossly intact. Cardiovascular status: normal Respiratory status: normal Airway patency: baseline Mental status: baseline Post-Op hydration status: normal Vital Signs: Last Vital Signs Temp 36.4 C 07/19/22 07:20 Pulse 72 07/19/22 07:20 Resp 16 07/19/22 07:20 BP 107/65 07/19/22 07:20 Pulse Ox 100 07/19/22 07:20 O2 Del Method Room Air 07/19/22 00:30 Pain score (VAS): 0 I/O: Intake & Output 07/18/22 07/19/22 07/19/22 23:59 07:59 15:59 Intake Total 1600 850 Output Total 2150 1000 Balance -550 -150 Post-procedural complaints: none Patient feedback: Patient satisfied with anesthetic care.
--- NOTE | 2022-07-19 15:10 | PC.NURSE ---
[id number] Consulted with patient to assess needs related to . Mother led conversation with her experience with feeding baby so far. Mother works well with her infant with encouragement. Reviewed working with , supporting breast and how to protect the nipples with an optimal deep latch, good positioning, and good hand washing. Encouraged understanding the benefits of skin to skin, responding to feeding cues, frequencies of feeding 8-12 times in 24 hours (approximately 2-3 hours), duration of feedings, milk production, intake/output feeding sheet and signs of adequate intake encouraging swallowing at the breast. Nipple care reviewed with optimal latch, good positioning and using clean hands when feeding her and touching her breast. Resources used to facilitate learning were used from the visual handout, tool/mom and baby guide. Mother voiced understanding of the education shared, to call for assistance if the infant does not latch or if there is discomfort with . Mother has an outpatient resource with [facility] for assistance. She was encouraged to make contact with [facility] for support. Discussed the risks and benefits of pumping and supplementing with formula less than 48 hours after delivery. Reviewed milk production and that it is not recommended that mother use cannabis while . Mother states she will not be using cannabis. Reported to the primary RN. 1435 - Mother demonstrates she is able to independently latch with appropriate positioning/alignment. She denies any nipple discomfort and is responsively . Infant is currently meeting outcomes for weight, output, jaundice and feeding frequencies of 8-12 times in 24 hours. Mother declines any additional assistance/education at this time. Mother is encouraged to call for assistance if her infant doesn?t latch or there is discomfort with latching. Mother voiced understanding of information shared and the mom reminded of the mom/baby guide for an additional resource.
[2022-07-19 16:00] VITALS: PULSE 72; RESP 16; O2SAT 100
[2022-07-19 20:20] VITALS: BP 143/85; PULSE 76; RESP 18; TEMP 36.8; O2SAT 100
[2022-07-20] MEDS: SIMETHICONE 80 MG TAB.CHEW PO ×6 (01:45→22:25)
[2022-07-20] MEDS: HYDROcodone/acetaminophen (*CRX) 10-325 MG TABLET 1 TAB PO ×4 (01:45→22:25)
[2022-07-20 08:00] VITALS: BP 126/77; PULSE 74; RESP 18; TEMP 36.6; O2SAT 99
[2022-07-20] MEDS: MULTIVIT/MIN/PREN/FOL AC/IRON TABLET 1 TAB PO (08:05)
[2022-07-20] MEDS: POLYSACCHARIDE IRON COMPLEX 150 MG CAPSULE PO ×2 (08:05→17:05)
[2022-07-20] MEDS: DOCUSATE SODIUM 100 MG CAPSULE PO ×2 (08:05→17:05)
--- NOTE | 2022-07-20 08:31 | PM.OBPNVD ---
OB - PN: Subj Subjective Date/time seen: 07/20/22 08:32 Patient comments: no complaints, pain well controlled, incisional pain, tolerating diet and flatus present OB - PN: Obj Data Labs 07/19/22 04:14 OB - PN A/P Plan day: 2 Plan: routine care Comments: POD#2 LTCS - no problems, Time Spent With Patient Time: Total time spent is greater than 50% in coordination of care (as documented) at patient's floor/unit and/or counseling patient: Exam Const: General: comfortable, no acute distress and alert Resp: Effort & Inspection: normal respiratory effort Auscultation: no crackles, no rales and no rhonchi Cardio: Rate: regular rate Heart sounds: no click, no murmurs and no rubs GI: Inspection: non-distended GI Palp: No Tenderness to palpation present (GI) Auscultation: normal bowel sounds Other: Incision - CDI Extrem: General: normal to inspection, no pedal edema and no calf tenderness
--- NOTE | 2022-07-20 09:52 | PC.NURSE ---
0945 - Purposefully rounded to assess needs. The lights are off in the room. Primary RN reports mother bottle fed at 0700.
--- NOTE | 2022-07-20 11:28 | PCCCNOTE ---
Care Coordination met with pt. this morning to discuss discharge planning. Pt.'s current D/C plan is to return home with her and two other children. This baby is pt.'s third child, she has an 11 year old son and 4 year old son. Pt.'s family is supportive and excited to bring baby home. Pt. has everything needed to safely bring baby home including a car seat and place for her to sleep. Pt. is current with [facility]. She will continue to breast feed at time of D/C. Pt. did test positive for THC at time of admission. She admits to THC use during to assist with her loss of appetite. Pt. states she will no longer use THC now that baby has been delivered. Pt. has been provided a care basket. She has no D/C needs and no concerns.
[2022-07-20] MEDS: HYDROcodone/acetaminophen (*CRX) 5-325 MG TABLET 1 TAB PO ×3 (11:56→19:30)
[2022-07-20 19:30] VITALS: BP 119/86; PULSE 61; RESP 16; TEMP 36.8
[2022-07-21] MEDS: SIMETHICONE 80 MG TAB.CHEW PO ×2 (04:11→09:00)
[2022-07-21] MEDS: HYDROcodone/acetaminophen (*CRX) 10-325 MG TABLET 1 TAB PO ×3 (04:11→14:00)
--- NOTE | 2022-07-21 07:24 | PM.OBPNVD ---
OB - PN: Subj Subjective Date/time seen: 07/21/22 07:24 Patient comments: no complaints and pain well controlled baby status: doing well and nursing well [place] feeding status: exclusively breast feeding Narrative: Ready for DC home. OB - PN: Obj Data Labs 07/19/22 04:14 OB - PN A/P Plan day: 3 Plan: routine care and discharge home Comments: DC instructions given Time Spent With Patient Time: Total time spent is greater than 50% in coordination of care (as documented) at patient's floor/unit and/or counseling patient: Exam Narrative: NAD abdomen soft, appropriately tender, incision CDI Extremities nontender with 1+ edema
--- NOTE | 2022-07-21 07:26 | P.DS_ITS ---
DS: Admitting Diagnosis Discharge Date 07/21/22 Admitting Diagnosis history of section DS: Discharge Diagnosis Discharge Diagnosis (1) delivery delivered: Code(s): O82 - Encounter for delivery without indication Status: Acute OB - DS: Summary Hospital Course Hospital Course: Precious was admitted for repeat section. She proceeded to have an uncomplicated delivery and post operative course and was discharged on POD 3. OB Procedures : Ultrasound OB Procedures Intrapartum: OB Procedures: : None Peripartum Data Infant Delivery Method: Section Procedures: Procedures Operation Date: 07/18/22 07:30 Actual Procedure Side Surgeon p Repeat Section Kenya Nye MD complications: none Status at Discharge Functional status at discharge: independent ambulation Time Spent with Patient Time attestation: Total time spent providing and/or coordinating discharge services: Exam Narrative: NAD abdomen soft, appropriately tender, incision CDI Discharge Plan Discharge Attending physician on discharge: Kenya Nye Discharging Clinician: Kenya Nye Anticipated Discharge Date/Time: 07/21/22 07:26 Patient Disposition: Home, Self-Care Activity: may shower, may drive after 2 weeks and pelvic rest Diet: regular Patient Instructions: Antibiotic Form Stand Alone Forms: General Discharge Information Follow-up/Referrals: Kenya Nye MD [Physician] - 1 Week Discharge Medications: New oxycodone-acetaminophen [Percocet] 5-325 mg tablet 1 tablet PO Q4H PRN (Reason: pain) Qty: 30 0RF docusate sodium 100 mg Capsule 100 mg PO BID PRN (Reason: Constipation) Qty: 60 0RF Continued levothyroxine 75 mcg tablet 100 mcg PO BID Rx Instructions: Taking 100 mcg prenat.vits,kimber,[id number] Tablet 1 tablet PO DAILY Date of admission: 07/18/22 05:25 Primary Care Provider: PHYSICIAN,SOFTWARE APPLICATIONS DEVELOPER Admitting Provider: Marko Lao Attending physician on admission: Marko Lao Condition: Stable
[2022-07-21 07:45] VITALS: BP 107/70; PULSE 67; RESP 16; TEMP 36.9; O2SAT 100
[2022-07-21 09:00] VITALS: PULSE 67; RESP 16; O2SAT 100
[2022-07-21] MEDS: POLYSACCHARIDE IRON COMPLEX 150 MG CAPSULE PO (09:00)
[2022-07-21] MEDS: MULTIVIT/MIN/PREN/FOL AC/IRON TABLET 1 TAB PO (09:00)
[2022-07-21] MEDS: DOCUSATE SODIUM 100 MG CAPSULE PO (09:00)
--- NOTE | 2022-07-21 13:22 | PC.NURSE ---
Addendum entered by Evy Barker RN 07/21/22 13:33: Mother confirms that she is her infant with no pain and state she is latching great . Offered assessment on the next feeding and mother is confident it is going well. Original Note: [id number] Mother led the conversation with her experience and plan to feed her infant so far and her ability to independently latch infant optimally without discomfort. Mother is pumping as well so dad can bottle feed the baby. Discussed the risks and benefits of breastfeed and pumping so mother can make an informed decision and this remains to be her plan. Reminded parents to use good handwashing technique to prevent infection. Mother is feeding appropriately for growth of infant and understands stimulating infant to eat if needed. has had appropriate feedings in the last 24 hours meets the outcomes for weight, output and jaundice at this time. Mother states she is confident to continue effectively breastfeed, pump and supplement if needed to feed her infant at home, when to call for assistance and denies any additional assistance or education at this time. Reinforced understanding of milk production, transition of milk, signs of adequate intake, transition of stool, prevention/relief of engorgement, responsive watching for feeding cues, the different methods of stimulating infant to breastfeed 2-3 hours after the start of the last feeding, community resources, medication information reviewed per [facility] and when to call a provider using the resource of the mom and baby guide/[facility] website. Mother voiced understanding of the education shared. Reported to the primary RN.
[2022-07-22 10:37] VITALS: BP 118/79; PULSE 73; RESP 20; TEMP 37.1; O2SAT 99
== END 2022-07-21 14:30 | disposition home or self-care (01) | DRG 540 ==
LOC: ANHLDR 05:32 → ANHOB2 07-21 07:29 → ANHLDR 07-24 10:16 → ANHOB2 07-24 10:16
PROVIDERS: Admitting Provider Obstetrics & Gynecology; Visit Provider Obstetrics & Gynecology
PROC: 10D00Z1 Extraction of Products of Conception, Low, Open Approach (ICD-10-PCS; CPT 59514; principal; 2022-07-18 07:30)
DX: O34.219 Maternal care for unspecified type scar from previous cesarean delivery (principal); E03.9 Hypothyroidism, unspecified; O99.844 Bariatric surgery status complicating childbirth; Z3A.39 39 weeks gestation of pregnancy; Z37.0 Single live birth; O99.284 Endocrine, nutritional and metabolic diseases complicating childbirth; O99.344 Other mental disorders complicating childbirth; F41.9 Anxiety disorder, unspecified
CPT/HCPCS: 36415; 80307; 85025; 86592; 86850; 86900; 86901; A9270; J0131; J0690; J2274; J2405; J2590; J7120

== ENCOUNTER 2022-09-06 00:24 | Day surgery (SDC) | payer OTHER, SELFPAY ==
[2022-08-29 15:53] VITALS: BMI 30.9
--- NOTE | 2022-08-29 16:27 | PC.NURSE ---
Report to the Outpatient Waiting Room, entrance under the green pavilion located off [facility], at 1130 on 09-06-22. Planned Procedure Time: 1330. Time changes happen often and if your time is changed the preop area will call you the afternoon before. - You and your visitor will be asked to self-screen and do not enter if you have any COVID symptoms. - A mask is optional within the hospital at this time. Patients may have clear liquids (water, carbonated beverages, clear teas, apple juice) until 3 hours prior to surgery with a maximum of 20 ounces. 1030 - No food from midnight until time of surgery - Infants may have breast milk until 4 hours before surgery, formula 6 hours prior to surgery. - Children will be allowed to drink immediately following surgery. If applicable, please bring a bottle or sippy cup to assist with drinking. Juice, water, soda, and popsicles are readily available. For infants on formula, please bring formula the day of surgery. Pacifiers are allowed. Take the following medications with a SIP of water the morning of surgery: sertraline DO NOT STOP ANY OF YOUR OTHER PRESCRIPTION MEDICATIONS PRIOR TO SURGERY ?EXCEPT THE FOLLOWING Medications to discontinue per physician: vitamins and supplements Date to take last dose: 09-03-22 Please no make-up, nail welsh, hairspray, perfume, deodorant, or body powder the day of surgery. No jewelry (including any body piercings) or valuables the day of surgery, leave them at home. Please take a shower or bath the night before, or the morning of, surgery with an antibacterial soap. Wear comfortable, loose fitting clothing. Children are encouraged to wear pajamas. - Jewelry must be removed prior to entering the operating room. Rings and piercings that are not removed may be cut off. - The hospital will not accept responsibility for valuables. - Please leave all valuables, including medications, at home the day of surgery. If you are going home after surgery, a licensed route salesman and driver must drive you home. - NO public transportation without another adult if you receive anesthesia. - We recommend that an adult stay with you for 24 hours following discharge. - We also recommend that you do not drive, make important decision, drink alcoholic beverages, or take any drugs that were not prescribed by your health care provider for at least 24 hours after your discharge time. For Pediatric surgeries, we recommend two adults accompany the child home. Follow any additional instructions given to you from your surgeon. If you or anyone in your household have experienced Covid symptoms in the past week, please notify your surgeon or the nurse liaison at the phone number below for possible testing. Telephone instructions given to Precious Acharya and asked if any additional questions and then verbalized understanding. Patient advised to call surgeon office or pre surgery nurse liaison [phone] if any additional questions.
[2022-09-06] VITALS (10 sets, daily range): BP systolic 92–112; BP diastolic 56–82; PULSE 48–90; RESP 12–16; TEMP 36.3–36.4; O2SAT 95–100
[2022-09-06] MEDS: ACETAMINOPHEN 500 MG TABLET 1000 MG PO (11:48)
[2022-09-06] MEDS: KETOROLAC 15 MG/ML VIAL (*BKC) IV PUSH (11:59)
--- NOTE | 2022-09-06 12:40 | PM.IMHP ---
H&P: HPI History of Present Illness Date/Time: 09/06/22 12:40 Chief Complaint: sterilization Narrative: Precious is a 27yo here for LSC bilateral salpingectomy for sterilization. She is certain she is complete with childbearing. She has had CS x3 and gaastric sleeve. Review of Systems Review of Systems: All systems reviewed & are unremarkable except as noted in HPI and below PMFSH Past Medical History Medical History Anxiety Depression Hypothyroid Surgical History Surgical History H/O gastric bypass Social History Social History Smoking status: Never smoker Second hand tobacco smoke exposure: No Alcohol intake: current Alcohol use details: ocassionally Substance use: current Substance use type: marijuana Other substance usage details: marijuana use daily Last use: [id number] Lack of Transportation: No Lack of Food: Never True Current Housing: I Have Housing Concerned About Future Housing: No Difficulty Paying Gas/Electric Bills: No Difficulty Paying for Meds: No Currently Unemployed: No Education: High School Diploma/GED Difficulty w/ Childcare or Family Care: No Living arrangements: with family Gender identity (if verbalized by the patient): Female Sexual Orientation (if Verbalized by the Patient): Straight or Heterosexual Spiritual care concerns: No Meds Home Medications and Allergies Home Medications Medication Instructions Recorded Confirmed Type apple cider vinegar 300 mg tablet 300 mg PO DAILY 08/29/22 09/06/22 History sertraline 50 mg tablet 50 mg PO DAILY 08/29/22 08/29/22 History Allergies Allergy/AdvReac Type Severity Reaction Status Date / Time hydrocodone [From Vicodin] AdvReac Vomiting Verified 09/06/22 11:31 Vital Signs Vital Signs - 24 hr 09/06/22 12:00 Temperature 97.5 F L Pulse Rate 49 L Respiratory Rate 16 Blood Pressure 112/77 Pulse Oximetry 99 Oxygen Delivery Room Air Exam Const: General: no acute distress Resp: Effort & Inspection: normal respiratory effort Auscultation: clear to auscultation bilaterally Cardio: Rate: regular rate Rhythm: regular rhythm GI: GI Palp: Yes Soft to palpation Extrem: General: normal to inspection Assessment and Plan Assessment and plan (1) Encounter for sterilization: Code(s): Z30.2 - Encounter for sterilization Status: Acute Plan COnsented for LSC bilateral salpingectomy after discussing RBA. ancef. will proceed.
--- NOTE | 2022-09-06 12:42 | WPDHPUPDATE1 ---
History and Physical Update Update Date/Time: 09/06/22 12:42 History and Physical has been reviewed, including an updated exam of the patient. There are NO changes in the patient's condition. Risks, benefits, and alternatives have been discussed and questions answered. Patient agrees to proceed with procedure.
--- NOTE | 2022-09-06 14:06 | P.PNAN_ITS ---
Anes - Initial Pre Proc Eval Procedure: Operation Date: 09/06/22 13:30 Proposed Procedures p Laparoscopic Bilateral Salpingectomy - Kenya Nye MD Date/Time: 09/06/22 14:06 Surgeon: Kenya Nye MD Pre Op Diagnosis: sterilization Patient Data Age: 27 Gender: F Height: 1.6 m Weight: 82.8 kg Last Vital Signs Temp 36.4 C L 09/06/22 12:00 Pulse 49 L 09/06/22 12:00 Resp 16 09/06/22 12:00 BP 112/77 09/06/22 12:00 Pulse Ox 99 09/06/22 12:00 O2 Del Method Room Air 09/06/22 12:00 Allergies Allergy/AdvReac Type Severity Reaction Status Date / Time hydrocodone [From Vicodin] AdvReac Vomiting Verified 09/06/22 11:31 Home Medications Medication Instructions Recorded Confirmed Type apple cider vinegar 300 mg tablet 300 mg PO DAILY 08/29/22 09/06/22 History sertraline 50 mg tablet 50 mg PO DAILY 08/29/22 08/29/22 History Patient hx anesthesia problems: none Family hx anesthesia problems: none Results Review: All pre-operative results and documents have been reviewed as part of the pre- operative evaluation. [facility] Past Medical History Medical History Anxiety Depression Hypothyroid Surgical History Surgical History H/O gastric bypass Social History Social History Smoking status: Never smoker Second hand tobacco smoke exposure: No Alcohol intake: current Alcohol use details: ocassionally Substance use: current Substance use type: marijuana Other substance usage details: marijuana use daily Last use: [id number] Lack of Transportation: No Lack of Food: Never True Current Housing: I Have Housing Concerned About Future Housing: No Difficulty Paying Gas/Electric Bills: No Difficulty Paying for Meds: No Currently Unemployed: No Education: High School Diploma/GED Difficulty w/ Childcare or Family Care: No Living arrangements: with family Gender identity (if verbalized by the patient): Female Sexual Orientation (if Verbalized by the Patient): Straight or Heterosexual Spiritual care concerns: No Anes - Eval Final PreProcedure Day of Procedure 09/06/22 14:06 Patient weight: obese Heart: regular rate and rhythm Lungs: clear to auscultation Airway: Mallampati scale class II Neurological: alert and oriented Last oral intake: >/= 8 hours ASA classification: II Emergent: no Anesthetic plan: proceed Anesthesia type and monitoring: general ETT and standard monitoring Results Review: All pre-operative results and documents have been reviewed as part of the pre- operative evaluation. Informed Consent: The patient's anesthetic plan and its attendant risks and benefits were discussed with the patient/family/POA. Questions were solicited and answers provided to the satisfaction of the patient/family/POA.
[2022-09-06] MEDS: ceFAZolin 2 GM/D5W 50 ML 2 GM/50 ML BAG IVPB (15:10)
[2022-09-06] MEDS: metroNIDAZOLE 500 MG/ISO 100ML 500 MG/100 ML BAG 100 MG IVPB (15:28)
[2022-09-06] MEDS: BUPIVACAINE/EPINEPHRINE 0.25% 10 ML VIAL 20 ML INFILTRATE (16:04)
--- NOTE | 2022-09-06 16:07 | P.OP_ITS ---
Procedure Note - Detailed Date of Procedure 09/06/22 Pre-op Diagnosis sterilization Post-op Diagnosis Same Procedure Performed Laparoscopic Bilateral Salpingectomy Surgeon Kenya Nye MD Anesthesia General Indications undesired future fertility Findings normal uterus tubes and ovaries Description of Procedure The patient was taken to the OR and placed in dorthal lithotomy in [facility]. She received general anesthesia. A speculum was placed and the cervix grasped with a single tooth tenaculum and an acorn uterine manipulator placed easily. A lobato catheter had previously been placed. She had received preoperative antibiotics. A 5mm subumbilical skin incision was made and using direct visualization, the trocar was inserted intraperitoneally. The abdomen was insufflated and the pelvis inspected with the above findings. Bilateral 5mm incisions were made and trocars were placed under direct visualization. There was a midline adhesion of omentum to the anterior abdominal wall that impaired visualization of the pelvis. This was taken down at the abdominal wall with the LIgasure. The right tube was grasped and elevated and using the Ligasure device, the tube was sequentially cauterized and ligated and removed through the trocar and sent to pathology. Similarly, on the left, the tube was removed using the Ligasure device. Hemostasis was noted. The upper abdomen was inspected and noted to be normal. The trocars were removed and the Co2 was removed from the abdomen. The skin was closed with 4-0 vicryl and steri strips. The patient tolerated the procedure well and was taken to the recovery room in stable condition. EBL 10cc. Estimated Blood Loss 10 Drains No Packing No Pathology Yes Complications No immediate complications Condition Stable Disposition Same day
[2022-09-06] MEDS: LACTATED RINGERS 1,000 ML 30 ML IV CONT ×2 (16:17→17:40)
[2022-09-06] MEDS: fentaNYL CITRATE INJ (*CRX) 100 MCG/2 ML VIAL 25 MCG IV PUSH ×4 (16:44→17:00)
[2022-09-06] MEDS: ONDANSETRON INJ 4 MG/2 ML VIAL IV PUSH (17:30)
[2022-09-06] MEDS: diphenhydrAMINE HCl INJ 50 MG/ML VIAL 25 MG IV PUSH (18:07)
[2022-09-06] MEDS: oxyCODONE HCL (*CRX) 5 MG TAB IR PO (18:38)
== END 2022-09-06 18:55 | disposition home or self-care (01) ==
PROVIDERS: Visit Provider Obstetrics & Gynecology
PROC: (CPT 49320; principal; 2022-09-06 13:30)
DX: Z30.2 Encounter for sterilization (principal); N83.8 Other noninflammatory disorders of ovary, fallopian tube and broad ligament; F41.9 Anxiety disorder, unspecified; F32.A Depression, unspecified; Z98.84 Bariatric surgery status; F12.90 Cannabis use, unspecified, uncomplicated; E66.9 Obesity, unspecified; Z68.32 Body mass index [BMI] 32.0-32.9, adult
CPT/HCPCS: 58661; 88302; A9270; J0690; J1100; J1200; J1885; J2250; J2405; J2704; J2710; J3010; J7030; J7120

== ENCOUNTER 2024-08-10 10:24 | Emergency (ER) | payer OTHER, SELFPAY ==
--- NOTE | ~2024-08-10 | CT_ITS ---
CT abdomen pelvis wo con Ordering provider: Sami Kulkarni MD History: 29 years Female with . flank pain . Comparison: None. Technique: CT abdomen and pelvis without IV and without oral contrast. Automated exposure control and iterative reconstruction technique were employed. The dose-length product was 564.24 mGy-cm. Findings: VISUALIZED LOWER CHEST: Normal. UPPER ABDOMINAL ORGANS: Liver: Normal. Gallbladder: Normal. Spleen: Normal. Stomach/duodenum: Postoperative changes in the stomach. Pancreas: Normal. Adrenals: Normal. Kidneys: Normal. PELVIC ORGANS: The bladder is normal. Tiny stone seen in the right side which may be a stone in the ureterovesical junction or a stone in the urinary bladder. BOWEL AND MESENTERY: Colon: No evidence of diverticulitis. Fecal material is loaded in the colon.. Normal appendix. Small Bowel: Normal. No obstruction. Peritoneum/mesentery: No free air or free fluid. No mesenteric lymphadenopathy. RETROPERITONEUM: Normal aorta. No retroperitoneal lymphadenopathy. MUSCULOSKELETAL: Superficial soft tissues: Fat stranding seen in the anterior abdominal wall which may be due to edema or inflammatory changes. air bubbles are seen in the right side of the anterior abdominal wall in the area of the pelvis which may be postsurgical. Clinical evaluation advised. Otherwise, The superficial soft tissues are normal . Bones: Age appropriate degenerative changes of the spine. IMPRESSION: 1. No evidence of appendicitis, diverticulitis or intestinal obstruction. 2. Stone in the right side of the urinary bladder. 3. Possible Postsurgical changes in the anterior abdominal wall. Clinical correlation advised. 4. Constipation. Reviewed, dictated and finalized at location A. IMPRESSION: 1. No evidence of appendicitis, diverticulitis or intestinal obstruction. 2. Stone in the right side of the urinary bladder. 3. Possible Postsurgical changes in the anterior abdominal wall. Clinical melita elation advised. 4. Constipation.
[2024-08-10 10:45] VITALS: BP 124/68; PULSE 69; RESP 16; TEMP 36.9; O2SAT 100
--- OUTSIDE RECORDS SUMMARY | 2024-08-10 11:43 | XMS_ITS | Clinical Summary ---
Author Organization [facility] Address [address] [place] [address] Care Team Providers Care Scarf And Anneal Operator Name Role Phone Unavailable Primary Care Provider Unavailabl e Source Comments [facility],non-owned Affiliates and Associated Physician Practices is amultiple site organization consisting of ambulatory clinics and hospital sitesin [place], [place], [place] and [place]. This disclosure is being madepursuant to the Care Everywhere program and may not contain all information available regarding this patient. Last updated 18.[facility] Allergies No known active allergies Medications * Be aware that medications may not be up to date on this document. Alwaysverify current medications with the patient. Medication Sig Dispensed Refills Start Date End Date Status multivitamin daily tablet Take 1 (one) tablet by mouth 2 times daily Active vitamin D, ergocalciferol, (Drisdol) 1.25 MG (97619 UT) capsuleIndications: Vitamin D Deficiency Take 1 (one) capsule by mouth every 7 days Reasons: Vitamin D Deficiency 4 capsule 3 12/10/2023 Active Additional Information Patient not taking.Reported on 07/17/2024 IRON, FERROUS SULFATE, PO Take 1 tablet by mouth 3 times daily Active acetaminophen (TYLENOL) 500 MG tabletIndications:B ariatric surgery status Pt is to take 2 tabs po every 8 hours for basal pain. May take additional 1 tab twice daily if needed. Pt to not exceed 4000mg daily. 40 tablet 06/26/2024 Active calcium carbonate (Caltrate) 600 MG tablet Take 1 (one) tablet by mouth daily with food Active Probiotic Product ([employer]) capsuleIndications: Bariatric surgery status Take 1 (one) capsule by mouth once daily 30 capsule 3 06/26/2024 07/30/19 25 Discontinue d(Tx Complete) ondansetron, disintegrating, (Zofran ODT) 4 MG tabletIndications:B ariatric surgery status Take 1 (one) tablet by mouth every 4 hours as needed for Nausea/Vomiting Allow tablet to dissolve on the tongue 30 tablet 2 06/26/2024 07/27/19 Additional Information Patient not taking.Reported on 07/17/2024 docusate sodium (Colace) 100 MG capsuleIndications: Bariatric surgery status Take 1 (one) capsule by mouth 2 times daily 30 capsule 06/26/2024 07/30/19 Discontinue d(List Clean-Up) oxyCODONE, immediate release, (Roxicodone) 5 MG tabletIndications:S tatus post panniculectomy Take 1 (one) tablet by mouth every 4 hours as needed for Pain 5 tablet 07/09/2024 07/30/19 Discontinue d(Tx Complete) Active Problems Problem Noted Date Diagnosed Date Abdominal pannus 07/08/2024 History of bariatric surgery 02/15/2022 H/O section 02/15/2022 H/O severe pre-eclampsia 02/15/2022 Overview (05/02/2022): PCR: 0.072, 04/2022 Morbid obesity 04/05/2021 Vitamin D deficiency 12/14/2020 Iron deficiency anemia secon ganga to inadequate dietary iron intake 12/14/2020 Hypothyroidism 12/14/2020 GERD (gastroesophageal reflux disease) Resolved Problems Problem Noted Date Diagnosed Date Resolved Date BMI 50.0-59.9, adult 12/14/2020 022 Class 3 severe obesity due t o excess calories without serious comorbidity with body mass index (BMI) of 50.0 to 59.9 in adult 12/14/202004/2022 Pre-op evaluation 12/14/2020 Encounters Date Type Department Care Team Description 08/05/2024 8:30 AM CDT Office Visit [facility] Weight Management Services [address] [place] [address] Tawana Kay, LOGISTICS TEAM LEADER-TOLL COLLECTOR SUPERVISOR Status post panniculectomy (Primary Dx) 07/29/2024 1:00 PM CDT Office Visit [facility] [address] [place] [address] Tawana Kay R, LOGISTICS TEAM LEADER-TOLL COLLECTOR SUPERVISOR Status post panniculectomy (Primary Dx) 07/24/2024 11:30 AM CDT Office Visit [facility] [address] [place] [address] Tawana Kay, LOGISTICS TEAM LEADER-TOLL COLLECTOR SUPERVISOR Status post panniculectomy (Primary Dx) 07/17/2024 9:00 AM CDT Office Visit [facility] [address] [place] [address] Tawana Kay, LOGISTICS TEAM LEADER-TOLL COLLECTOR SUPERVISOR Abdominal pannus (Primary Dx) 07/10/2024 Telephone [facility] [address] [place] [address] Earline Anderson MD Post-Op 07/08/2024 8:16 AM [facility] Anesthesia Event [facility] [address] [place] [address] Tello Dixon MD Heaney, Michael, MD 07/08/2024 7:45 AM [facility] - 07/08/2024 11:02 AM [facility] Surgery [facility] [address] [place] [address] Earline Anderson MD PANNICULECTOMY 07/08/2024 6:03 AM [facility] - 07/09/2024 1:54 PM [facility] Hospital Encounter [facility] [address] [place] [address] Earline Anderson MD Surgery General Discharge Disposition: Home or Self Care 07/08/2024 Travel 06/30/2024 10:00 AM [facility] - 06/30/2024 11:59 PM [facility] Hospital Encounter [facility] PREADMISSION [address] [place] [address] Earline Anderson MD Discharge Disposition: Home or Self Care 06/30/2024 Travel 06/26/2024 11:30 AM [facility] - 06/26/2024 11:59 PM [facility] Hospital Encounter [facility] [address] [place] [address] Earline Anderson MD Bariatric Surgery Discharge Disposition: Home or Self Care 06/26/2024 10:30 AM [facility] Office Visit [facility] Weight Management Services [address] [place] [phone] Earline Anderson MD Abdominal pannus (Primary Dx); Status post laparoscopic sleeve gastrectomy 06/26/2024 Telephone [facility] [address] [place] [address] Tawana Kay, LOGISTICS TEAM LEADER-TOLL COLLECTOR SUPERVISOR Pre Op Call 06/23/2024 Travel from Last 3 Months Family History Medical History Relation Name Comments Diabetes; unknown type Maternal Grandmother Thyroid Disease Maternal Grandmother Heart Failure Paternal Grandfather High Cholesterol Paternal Grandfather Hypertension Paternal Grandfather Hypertension Paternal Grandmother Relation Name Status Comments Father Alive Maternal Grandmother Mother Alive Paternal Grandfather Paternal Grandmother Social History Tobacco Use Types Packs/Day Years Used Date Smoking Tobacco: Never Smokeless Tobacco: Never Tobacco Cessation:Counseling Given: Not Answered Alcohol Use Standard Drinks/Week Comments Not Currently 0 (1 standard drink = 0.6 oz pur e alcohol) occ AUDIT-C Answer Date Recorded Q1: How often do you have a drink containing alcohol? Never 07/08/2024 Q2: How many drinks containi ng alcohol do you have on a typical day when you are drinking? Patient does not drink Q3: How often do you have si x or more drinks on one occasion? Never 07/08/2024 PHQ-2 Answer Date Recorded Patient Health Questionnaire-2 Score 0 08/05/2024 Sex and Gender Information Value Date Recorded Sex Assigned at Female 10/17/2020 7:37 PM CDT Gender Identity Female 10/17/2020 7:37 PM CDT Sexual Orientation Straight 10/17/2020 7: 37 PM CDT Last Filed Vital Signs Vital Sign Reading Time Taken Comments Blood Pressure 116/60 08/05/2024 8:00 AM CDT Pulse 82 08/05/2024 8:00 AM CDT Temperature 36.8 C (98.2 F) 08/05/2024 8:00 AM CDT Respiratory Rate 18 08/05/2024 8:00 AM CDT Oxygen Saturation 99% 08/05/2024 8:00 AM CDT Inhaled Oxygen Concentration - - Weight 84.1 kg (185 lb 4.8 oz) 08/05/2024 8:00 A M CDT Height 169 cm (5' 6.54 ) 08/05/2024 8:00 AM CDT Body Mass Index 29.43 08/05/2024 8:00 AM CDT Plan of Treatment Upcoming Encounters Date Type Department Care Team (Late st Contact Info) Description 08/13/2024 10:15 AM CDT Office Visit [facility] Health Weight Management Services [address] [place] [address] Tawana Kay, LOGISTICS TEAM LEADER-TOLL COLLECTOR SUPERVISOR [address] [place] [address] 04/08/2025 1:00 PM [facility] Clinical Support [facility] [address] [place] [address] 04/08/2025 1:30 PM [facility] Office Visit [facility] Management Services [address] [place] [address] Tawana Kay, LOGISTICS TEAM LEADER-TOLL COLLECTOR SUPERVISOR [address] [place] [address] Health Maintenance Due Date Last Done Comments PAP SMEAR 1994 HEPATITIS C SCREENING 06/23/2012 DTAP/TDAP/TD VACCINES (1 - Tdap) 2013 HEPATITIS B VACCINE (1 of 3 - 19+ 3-dose series) 2013 COVID-19 VACCINE ( - 2023-2 5 season) 2024 INFLUENZA VACCINE (Season Ended) 2025 ZOSTER VACCINE (1 of 2) 2044 HIV SCREENING Completed 01/04/2022 DEPRESSION SCREENING Completed 06/26/2024, 12/07/2023 HIB VACCINE Aged Out No longer eligi ble based on patient's age to complete this topic HPV VACCINE Aged Out No longer eligi ble based on patient's age to complete this topic MENINGOCOCCAL (Group B) VACCINE SHARED DECISION-MAKING Aged Out No longer eligible based on patient's age to complete this topic MENINGOCOCCAL GROUPS A/C/Y/W VACCINE Aged Out No longer eligible b ased on patient's age to complete this topic PNEUMOCOCCAL VACCINE Aged Out No long er eligible based on patient's age to complete this topic Medical Devices Implanted Type Area Sales Correspondent Device Identifier Shelf Expiration Date Model / Serial / Lot Kit Tissue Clsr Duo Tssl 1 Prefl Syr Implanted:Qty: 1 on 04/05/2021 by Earline Anderson MD at [facility] [email or web address] 12/04/2022 [id number] / / [id number] Explanted Type Area Sales Correspondent Device Identifier Shelf Expiration Date Model / Serial / Lot Slnt Tiss Clsr Vistaseal Fbrn 10ml Frz - [id number] Explanted:Qty: 1 on 07/08/2024 by Earline Anderson MD at [facility] [employer] 11/14/2025 VST10 / [id number] / [id number] Slnt Tiss Clsr Vistaseal Fbrn 10ml Frz - [id number] Explanted:Qty: 1 on 07/08/2024 at [facility] [employer] 11/12/2025 VST10 / [id number] / [id number] Procedures Procedure Name Priority Date/Time Associated Diagnosis Comments APHERESIS/TRANSFUSIO N ORDER 07/10/2024 2:18 PM [facility] CARDIAC RHYTHM STRIP ORDER 07/10/2024 1:07 PM [facility] HGB HCT PANEL Timed 07/09/2024 11:21 AM [facility] Status post panniculectomy PHOSPHORUS BLOOD Routine 07/09/2024 4:31 AM [facility] Abdominal pannus MAGNESIUM BLOOD Routine 07/09/2024 4:31 AM [facility] Abdominal pannus COMPREHENSIVE METABOLIC PANEL Routine 07/09/2024 4:31 AM [facility] Abdominal pannus CBC W AUTO DIFFERENTIAL Routine 07/09/2024 4:31 AM [facility] Abdominal pannus MAGNESIUM BLOOD Timed 07/08/2024 7:50 PM [facility] Hypomagnesemia PHOSPHORUS BLOOD Routine 07/08/2024 11:56 AM [facility] Abdominal pannus MAGNESIUM BLOOD Routine 07/08/2024 11:56 AM [facility] Abdominal pannus COMPREHENSIVE METABOLIC PANEL Routine 07/08/2024 11:56 AM [facility] Abdominal pannus CBC W AUTO DIFFERENTIAL Routine 07/08/2024 11:56 AM [facility] Abdominal pannus CT EXC SKIN & SUBQ TISSUE ABD PANNICULECTOMY 07/08/2024 8:02 AM [facility] Abdominal pannus Special Needs ARRIVAL TIME: 0600 HCG URINE QUALITATIVE Routine 07/08/2024 6:15 AM [facility] TYPE + SCREEN PANEL STAT 06/30/2024 10:34 AM [facility] Pre-op evaluation NICOTINE + METABOLITES BLOOD Routine 06/26/2024 11:35 AM [facility] Pre-op testing History of tobacco abuse from Last 3 Months Results * APHERESIS/TRANSFUSION ORDER (07/10/2024 2:18 PM [facility]) Narrative 07/10/2024 2:18 PM [facility] Ordered by an unspecified provider. Scanned Document NURSING - VITAL SIGN S AND ASSESSMENT * CARDIAC RHYTHM STRIP ORDER (07/10/2024 1:07 PM [facility]) Narrative 07/10/2024 1:07 PM [facility] Ordered by an unspecified provider. Scanned Document CARDIAC SERVICES ORD ERABLES * (ABNORMAL) HGB HCT PANEL (07/09/2024 11:21 AM C[facility] FIRST) [facility] Hemoglobin 9.9(L) 11.9 - 15.8 g/dL 07/09/2024 11:30 AM [facility] Hematocrit 30.6(L) 34.8 - 46.1 % 07/09/2024 11:30 AM [facility] Blood BLOOD SPECIMEN / Unknown Lab Venipuncture / Unknown 07/09/2024 11:21 AM [facility] 07/09/2024 11:28 AM [facility] Tawana Kay LOGISTICS TEAM LEADER-TOLL COLLECTOR SUPERVISOR LAB - HEMATOLOGY ORDERABLES Performing Organization Address City/State/[facility] Co de Phone Number [facility] [address] * (ABNORMAL) CBC W AUTO DIFFERENTIAL (07/09/2024 4:31 AM [facility]) Only the most recent of2 resultswithin the time period is included. [facility] WBC 14.1(H) 4.0 - 10.7 x10E9/L 07/09/2024 4:51 AM [facility] RBC Count 3.63(L) 3.90 - 5.20 x10E12/L 07/09/2024 4:51 AM [facility] Hemoglobin 9.4(L) 11.9 - 15.8 g/dL 07/09/2024 4:51 AM [facility] Hematocrit 28.9(L) 34.8 - 46.1 % 07/09/2024 4:51 AM [facility] MCV 79.6(L) 80.0 - 98.0 fL 07/09/2024 4:51 AM [facility] MCH 25.9(L) 26.7 - 33.6 pg 07/09/2024 4:51 AM [facility] MCHC 32.5 31.7 - 36.3 g/dL 07/09/2024 4:51 AM [facility] RDW-CV 13.9 11.3 - 14.8 % 07/09/2024 4:51 AM [facility] Platelet Count 196 150 - 420 x10E9/L 07/09/2024 4:51 AM [facility] MPV 11.0 7.8 - 11.4 fL 07/09/2024 4:51 AM [facility] Neutrophil % 84.5(H) 41.0 - 74.0 % 07/09/2024 4:51 AM [facility] Lymphocyte % 8.9(L) 17.0 - 47.0 % 07/09/2024 4:51 AM [facility] Monocyte % 5.8 3.0 - 11.0 % 07/09/2024 4:51 AM [facility] Eosinophil % 0.0 0.0 - 7.0 % 07/09/2024 4:51 AM [facility] Basophil % 0.1 0.0 - 1.6 % 07/09/2024 4:51 AM [facility] Immature Granulocytes % 0.7 0.0 - 1.0 % 07/09/2024 4:51 AM [facility] Neutrophil Absolute 11.95(H) 1.60 - 7.50 x10E9/L 07/09/2024 4:51 AM [facility] Lymphocyte Absolute 1.26 1.00 - 4.40 x10E9/L 07/09/2024 4:51 AM [facility] Monocyte Absolute 0.82 0.15 - 1.00 x10E9/L 07/09/2024 4:51 AM [facility] Eosinophil Absolute 0.00 0.00 - 0.60 x10E9/L 07/09/2024 4:51 AM [facility] Basophil Absolute 0.01 0.00 - 0.13 x10E9/L 07/09/2024 4:51 AM [facility] Blood BLOOD SPECIMEN / Unknown Lab Venipuncture / Unknown 07/09/2024 4:31 AM [facility] 07/09/2024 4:49 AM [facility] Earline Anderson MD LAB - HEMATOLOGY ORDERABLES Performing Organization Address City/State/[facility] Co de Phone Number [facility] [address] * (ABNORMAL) COMPREHENSIVE METABOLIC PANEL (07/09/2024 4:31 AM [facility]) Only the most recent of2 resultswithin the time period is included. [facility] Glucose 76 70 - 125 mg/dL 07/09/2024 5:12 AM [facility] Sodium 138 136 - 145 mmol/L 07/09/2024 5:12 AM [facility] Potassium 3.8 3.4 - 5.1 mmol/L 07/09/2024 5:12 AM [facility] Chloride 109(H) 98 - 107 mmol/L 07/09/2024 5:12 AM [facility] CO2 19(L) 22 - 29 mmol/L 07/09/2024 5:12 AM [facility] Calcium 8.15(L) 8.4 - 10.2 mg/dL 07/09/2024 5:12 AM [facility] Anion Gap 10 6 - 16 mmol/L 07/09/2024 5:12 AM [facility] BUN 9.1(L) 9.8 - 20.1 mg/dL 07/09/2024 5:12 AM [facility] Creatinine 0.67 0.57 - 1.11 mg/dL 07/09/2024 5:12 AM [facility] Alkaline Phosphatase 33(L) 40 - 150 U/L 07/09/2024 5:12 AM [facility] ALT 10 <=55 U/L 07/09/2024 5:12 AM [facility] AST 13 5 - 34 U/L 07/09/2024 5:12 AM [facility] Protein Total 5.6(L) 6.4 - 8.3 gm/dL 07/09/2024 5:12 AM [facility] Albumin 2.9(L) 3.4 - 4.8 gm/dL 07/09/2024 5:12 AM [facility] Globulin Total 2.7 2.6 - 4.0 gm/dL 07/09/2024 5:12 AM [facility] Albumin/Globulin Ratio 1.1 0.9 - 1.6 07/09/2024 5:12 AM [facility] Bilirubin Total 0.9 0.2 - 1.2 mg/dL 07/09/2024 5:12 AM [facility] eGFR >90 >90 mL/min/1.7 3m2 07/09/2024 5:12 AM [facility] Comment:The GFR result was c alculated using the updated CKD-EPI Creatinine Equation (2020). Blood BLOOD SPECIMEN / Unknown Lab Venipuncture / Unknown 07/09/2024 4:31 AM [facility] 07/09/2024 4:49 AM [facility] Earline Anderson MD LAB - CHEMISTRY ORDERABLES Performing Organization Address [facility] de Phone Number [facility] [address] [place] [address] * PHOSPHORUS BLOOD (07/09/2024 4:31 AM [facility]) Only the most recent of2 resultswithin the time period is included. Phosphorus 3.3 2.5 - 4.5 mg/dL 07/09/2024 5:12 AM [facility] Blood BLOOD SPECIMEN / Unknown Lab Venipuncture / Unknown 07/09/2024 4:31 AM [facility] 07/09/2024 4:49 AM [facility] Earline Anderson MD LAB - CHEMISTRY ORDERABLES Performing Organization Address [facility] de Phone Number [facility] [address] [place] [address] * MAGNESIUM BLOOD (07/09/2024 4:31 AM [facility]) Only the most recent of3 resultswithin the time period is included. Pathologist [facility] [place] Magnesium 1.9 1.6 - 2.6 mg/dL 07/09/2024 5:12 AM [facility] Blood BLOOD SPECIMEN / Unknown Lab Venipuncture / Unknown 07/09/2024 4:31 AM [facility] 07/09/2024 4:49 AM [facility] Earline Anderson MD LAB - CHEMISTRY ORDERABLES Performing Organization Address [facility] de Phone Number [facility] [address] [place] [address] * (ABNORMAL) HCG URINE QUALITATIVE (07/08/2024 6:15 AM C[facility]) Pathologist [facility] [place] hCG Qualitative Urine Negative Negative 07/08/2024 6:28 AM [facility] Specific [place] UA 1.033(H) 1.005 - 1.030 07/08/2024 6:28 AM [facility] Urine URINE / Unknown Collection / Unknown 07/08/2024 6:15 AM [facility] 07/08/2024 6:18 AM [facility] Narrative [facility] - 07/08/2024 6:28 AM [facility] Tawana Kay LOGISTICS TEAM LEADER-TOLL COLLECTOR SUPERVISOR LAB - URINALYSIS ORDERABLES Performing Organization Address [facility] de Phone Number [facility] [address] * TYPE + SCREEN PANEL (06/30/2024 10:34 AM [facility]) ABO Rh O POS 06/30/2024 11:23 AM [facility] Antibody Screen NEG 11:23 AM [facility] Blood Bank BLOOD SPECIMEN / Unknown Lab Venipuncture / Unknown 06/30/2024 10:34 AM [facility] 06/30/2024 10:36 AM [facility] Kenney Ordaz MD LAB - BLOOD BANK ORD ERABLES Performing Organization Address [facility] de Phone Number [facility] [address] * NICOTINE + METABOLITES BLOOD (06/26/2024 11:35 AM [facility]) Nicotine <5 ng/mL 06/30/2024 12:09 AM [facility] ([facility]) Comment: INTERPRETIVE INFORMATION: Nicotine and Metabolites, Serum or Plasma, Quantitative Methodology: Quantitative Liquid Chromatography-Tandem Mass Spectrometry Positive cutoff: 5 ng/mL For medical purposes only; not valid for forensic use. This test is designed to evaluate recent use of nicotine-containing products. Passive and active exposure cannot be discriminated definitively, although a cutoff of 10 ng/mL cotinine is frequently used for surgery qualification purposes. For smoking cessation programs or compliance testing, the absence of expected drug(s) and/or drug metabolite(s) may indicate non-compliance, inappropriate timing of specimen collection relative to drug administration, poor drug absorption, or limitations of testing. This test cannot distinguish between use of tobacco and purified nicotine products. The concentration value must be greater than or equal to the cutoff to be reported as positive. This test was developed and its performance characteristics determined by [email or web address]. It has not been cleared or approved by the [place] Food and Drug Administration. This test was performed in a CLIA certified laboratory and is intended for clinical purposes. Performed By: [email or web address] [address] [id number] [employer] Typewriter Operator: Skyler May MD, PhD CLIA Number: [id number] Cotinine <5 ng/mL 06/30/2024 12:09 AM C[facility] FIRST [employer] ([facility]) Blood BLOOD SPECIMEN / Unknown Lab Venipuncture / Unknown 06/26/2024 11:35 AM [facility] 06/26/2024 11:50 AM [facility] Earline Anderson MD LAB - CHEMISTRY ORDERABLES [facility] ([facility]) [address] [place] [address], [facility] from Last 3 Months Advance Directives * Full Code (Latest Code Status on File) Date Activated Date Inactivated Comments 07/08/2024 12:41 PM 07/09/2024 2:55 PM * Full Code Date Activated Date Inactivated Comments 04/05/2021 4:07 PM 04/06/2021 5:53 PM
--- OUTSIDE RECORDS SUMMARY | 2024-08-10 11:43 | XMS_ITS | Patient Health Record ---
Author Organization [facility] Address [address] [place] [address] Care Team Providers Care Safety Relief Valve Technician Name Role Phone John Luz Maria Primary Care Provider Allergies No Known Allergies Reason For Referral No Information Medications Medication SIG (Take, Route, Fr equency, Duration) Notes Start Date End Date Status Ibuprofen 800 MG 1 tablet with food o r milk as needed Orally Three times a day for 30 days 05/28/2019 Active Strattera 40 MG 1 capsule in the mor collins Orally Once a day for 30 day(s) 05/28/2019 Active Social History Tobacco Use: Social History Observation Description Date Details (start date - stop date) Never Smoker NA - NA Sex Assigned At : Social History Observation Description Sex Assigned At Female Dont use, Tobacco Use/Smoking Question Answer Notes Are you a nonsmoker Problems Problem Type SNOMED Code ICD Code Onset Dates Problem Status W/U Status Risk Notes Problem Morbid obesity (disorder) (459454842) Morbid (severe) obesity due to excess calories (E66.01) Active confirmed Problem 05672441 Other chronic pain (G89.29) Active confirmed Problem 673670265 Attention deficit disorder (ADD) in adult (F98.8) Active confirmed Plan Of Treatment Future Test Test Name Order Date Chest X-ray PA and lateral 11/16/2020 Electrocardiogram (EKG) 11/16/2020 PTH, Intact 11/16/2020 Vitamin B1 (Thiamine), Blood 11/16/2020 Vitamin B12 and Folate 11/16/2020 Iron and TIBC* 11/16/2020 Hemoglobin A1c* 11/16/2020 Magnesium, Serum* 11/16/2020 Ferritin, Serum* 11/16/2020 CBC With Differential/Platelet* 11/17/19 21 PT and PTT 11/16/2020 Vitamin D, 25-Hydroxy* 11/16/2020 Lipid Panel* 11/16/2020 CMP 14 Comprehensive Metabolic Panel* TSH Rfx on Abnormal to Free T4 1 Insurance Providers Payer Name Payer Address Payer Phone Subscriber Number Group Number Insured Name Patient Relationship to Insured Coverage Start Date Coverage End Date [employer] [address] [place] [address] [id number] [facility] is the insured 0 [employer] [address] [place] [address] [id number] [facility] patient is the insured 1 Medical (General) History Medical History History ICD Code PCOS ADD Surgical History Surgery Date(Month/Year) c section 2012 c section 2019 leap biopsy 2018 wisdom teeth all four removed 2018 Hospitalization History Reason Date(Month/Year) 2 c-sections 2012 and 2019
[2024-08-10 11:59] LABS: Basophils Percent Auto 0.2 % (0.2-1.2); Eosinophils Absolute Auto 0.1 K/mm3 (0-0.3); Eosinophils Percent Auto 1.5 % (0-4.4); Hemoglobin 11.2 g/dL (12.0-15.0); Immature Granulocyte Absolute 0.04 K/mm3 (0.00-0.031); Immature Granulocyte Percent A 0.5 % (0-0.5); Lymphocytes Percent Auto 23.8 % (18.3-44.2); Mean Corpuscular HGB Conc 30.3 g/dl (32-36); Mean Corpuscular Hemoglobin 24.9 pg (26-34); Mean Corpuscular Volume 82.4 fl (80-100); Mean Platelet Volume 10.1 fl (7.4-10.4); Monocytes Absolute Auto 0.5 K/mm3 (0.1-0.6); Monocytes Percent Auto 5.4 % (2.6-8.5); Neutrophils Absolute Auto 5.8 K/mm3 (1.3-6.7); Neutrophils Percent Auto 68.6 % (45.5-73.1); Platelet Count Result 318 k/mm3 (150-375); Red Blood Count 4.49 M/mm3 (4.2-5.4); Red Cell Distribution Width 15.4 % (11.5-14.5); White Blood Count 8.4 K/mm3 (4.5-10.0)
--- NOTE | 2024-08-10 12:06 | PC.NURSE ---
atttempted to collect patient's blood cultures. patient taken to radiology at this time.
[2024-08-10 12:09] LABS: Prothrombin Time 13.2 Seconds (11.1-14.7)
[2024-08-10 12:10] LABS: Lactic Acid Reflex 0.9 mmol/L (0.7-2.0)
[2024-08-10 12:11] LABS: Alanine Aminotransferase 15 U/L (6-35); Albumin Level 4.8 g/dL (3.5-5.1); Alkaline Phosphatase 71 U/L (38-126); Anion Gap 14 mmol/L (4-12); Aspartate Amino Transferase 23 U/L (14-36); Bilirubin,Total 0.8 mg/dL (0.2-1.3); Blood Urea Nitrogen 6 mg/dL (7-17); Calcium 9.6 mg/dL (8.4-10.2); Carbon Dioxide 24 mmol/L (22-30); Chloride 104 mmol/L (98-107); Estimated Glomerular Filt Rate > 60; Glucose 88 mg/dL (65-110); Potassium 3.8 mmol/L (3.4-5.0); Sodium 142 mmol/L (137-145)
[2024-08-10 13:56] VITALS: BP 108/65; PULSE 68; RESP 16; O2SAT 100
[2024-08-10] MEDS: VANCOMYCIN 1,000 MG/NS 250 ML 1,000 MG/250 ML BAG 250 MG IVPB (14:15)
--- NOTE | 2024-08-10 15:02 | ED_ITS ---
HPI - General Adult General Chief complaint: Recheck/Abnormal Lab/Rx Stated complaint: post surgical wound Time Seen by Provider: 08/10/24 11:15 Source: patient Mode of arrival: ambulatory Limitations: no limitations History of Present Illness HPI narrative: 29-year-old status post panniculectomy here with the complaints of drainage from the incisional site which started few days ago please patient states that she had surgery done at [facility] in [place]. She denies any fever or chills. She states that she was trying to reach her surgeon but was unsuccessful. Increase in drainage since this morning. Onset (ago): day(s) (3) Location: abdomen Severity: moderate Exacerbating factors: none Associated symptoms: denies other symptoms Related Data Home Medications ?Medication ?Instructions ?Recorded ?Confirmed ?Last Taken ?Type apple cider vinegar 300 mg tablet 300 mg PO DAILY 08/29/22 09/06/22 08/30/22 History sertraline 50 mg tablet 50 mg PO DAILY 08/29/22 08/29/22 Unknown History Allergies Allergy/AdvReac Type Severity Reaction Status Date / Time hydrocodone (From Vicodin) AdvReac Vomiting Verified 09/06/22 11:31 Review of Systems 2 Review of Systems: All systems reviewed & are unremarkable except as noted in HPI and below Constitutional: Constitutional: Reports no additional constitutional complaints Eyes: Eyes: Reports no additional eye complaints ENT: Reports system reviewed and no additional complaints, except as documented Cardiovascular: Cardiovascular: Reports no additional cardiovascular complaints Respiratory: Respiratory: Reports no additional respiratory complaints Gastrointestinal: Gastrointestinal: Reports no additional gastrointestinal complaints Musculoskeletal: Musculoskeletal: Reports no additional musculoskeletal complaints Neurologic: Reports system reviewed and no additional complaints, except as documented Psychiatric: Psychiatric: Reports no additional psychiatric complaints Endocrine: Endocrine: Reports no additional endocrine complaints [facility] Past Medical History Medical History Anxiety Depression Hypothyroid Surgical History Surgical History H/O gastric bypass Social History Social History Smoking status: Never smoker Second hand tobacco smoke exposure: No Alcohol intake: current Alcohol use details: ocassionally Substance use: current Substance use type: marijuana Other substance usage details: marijuana use daily Last use: [id number] Lack of Transportation: No Lack of Food: Never True Current Housing: I Have Housing Concerned About Future Housing: No Difficulty Paying Gas/Electric Bills: No Difficulty Paying for Meds: No Currently Unemployed: No Education: High School Diploma/GED Difficulty w/ Childcare or Family Care: No Living arrangements: with family Gender identity (if verbalized by the patient): Female Sexual Orientation (if Verbalized by the Patient): Straight or Heterosexual Spiritual care concerns: No Exam 2 Narrative: GENERAL: Well-appearing, well-nourished, and in no acute distress. HEAD: Normocephalic, atraumatic. EYES: PERRLA and EOMI. ENT: Nares clear, no rhinorrhea or epistaxis. Mucous membranes moist. NECK: Supple. CHEST: Clear to auscultation. No respiratory distress. HEART: Regular rate and rhythm. No murmur heard. Normal peripheral pulses. ABDOMEN: Soft, nontender, nondistended, Purulent drainage from the incisional site on the right lower abd , skin is normal appearing no sign of cellulitis EXTREMITIES: Normal range of motion. No edema. SKIN: Warm, dry, no rash. NEURO: No focal deficits. Alert and oriented x3. PSYCH: Normal mood and affect. Course Course Emergency Course: Notified patient about her lab work, CT findings. I did discuss with her surgeon Dr. Moreno at [facility] will follow up in the office tomorrow , pt feels comfortable going home with oral antibiotics Vital Signs Vital signs: Vital Signs Temperature 36.9 C 08/10/24 10:45 Pulse Rate 69 08/10/24 10:45 Respiratory Rate 16 08/10/24 10:45 Blood Pressure 124/68 08/10/24 10:45 Pulse Oximetry 100 08/10/24 10:45 Oxygen Delivery Room Air 08/10/24 10:45 Temperature 36.9 C 08/10/24 10:45 Pulse Rate 68 08/10/24 13:56 Respiratory Rate 16 08/10/24 13:56 Blood Pressure 108/65 08/10/24 13:56 Pulse Oximetry 100 08/10/24 13:56 Oxygen Delivery Room Air 08/10/24 13:56 Medical Decision Making Vital Signs Vital Signs: Vital Signs Temperature 36.9 C 08/10/24 10:45 Pulse Rate 69 08/10/24 10:45 Respiratory Rate 16 08/10/24 10:45 Blood Pressure 124/68 08/10/24 10:45 Pulse Oximetry 08/10/24 10:45 Oxygen Delivery Room Air 08/10/24 10:45 Temperature 36.9 C 08/10/24 10:45 Pulse Rate 68 08/10/24 13:56 Respiratory Rate 16 08/10/24 13:56 Blood Pressure 108/65 08/10/24 13:56 Pulse Oximetry 100 08/10/24 13:56 Oxygen Delivery Room Air 08/10/24 13:56 Lab Data Lab results reviewed: Yes I reviewed the patient's lab results. 08/10/24 11:47 08/10/24 11:47 Labs: Lab Results 08/10/24 Range/Units 11:47 WBC 8.4 (4.5-10.0) K/mm3 RBC 4.49 (4.2-5.4) M/mm3 Hgb 11.2 L (12.0-15.0) g/dL Hct 37.0 (37.0-47.0) % MCV 82.4 (80-100) fl MCH 24.9 L (26-34) pg MCHC 30.3 L (32-36) g/dl RDW 15.4 H (11.5-14.5) % Plt Count 318 D (150-375) k/mm3 MPV 10.1 (7.4-10.4) fl Immature Gran % (Auto) 0.5 (0-0.5) % Neut % (Auto) 68.6 (45.5-73.1) % Lymph % (Auto) 23.8 (18.3-44.2) % [place] % (Auto) 5.4 (2.6-8.5) % Eos % (Auto) 1.5 (0-4.4) % Baso % (Auto) 0.2 (0.2-1.2) % Lymph # (Auto) 2.00 (0.9-3.2) K/mm3 [place] # (Auto) 0.5 (0.1-0.6) K/mm3 Eos # (Auto) 0.1 (0-0.3) K/mm3 Baso # (Auto) 0.0 (0.0-0.1) K/mm3 Abs Immat Gran (auto) 0.04 H (0.00-0.031) K/mm3 Absolute Neuts (auto) 5.8 (1.3-6.7) K/mm3 Absolute Nucleated RBC 0.000 (0.0-0.012) K/mm3 Nucleated RBC % 0.0 (0.0-0.2) % PT 13.2 (11.1-14.7) Seconds INR 1.0 Sodium 142 (137-145) mmol/L Potassium 3.8 (3.4-5.0) mmol/L Chloride 104 (98-107) mmol/L Carbon Dioxide 24 (22-30) mmol/L Anion Gap 14 H (4-12) mmol/L BUN 6 L (7-17) mg/dL Creatinine 0.70 (0.7-1.0) mg/dL Estim Creat Clear Calc Not Reportable Estimated GFR > 60 (59 - ) Glucose 88 (65-110) mg/dL Lactic Acid 0.9 (0.7-2.0) mmol/L Calcium 9.6 (8.4-10.2) mg/dL Total Bilirubin 0.8 (0.2-1.3) mg/dL AST 23 (14-36) U/L ALT 15 (6-35) U/L Alkaline Phosphatase 71 (38-126) U/L Total Protein 9.0 H (6.3-8.2) g/dL Albumin 4.8 (3.5-5.1) g/dL Imaging Data Radiologist's impression: ITS Impressions Abdomen/Pelvis CT 08/10/24 12:55 IMPRESSION: 1. No evidence of appendicitis, diverticulitis or intestinal obstruction. 2. Stone in the right side of the urinary bladder. 3. Possible Postsurgical changes in the anterior abdominal wall. Clinical correlation advised. 4. Constipation. Discharge Plan Discharge Clinical Impression: Postoperative wound abscess Patient Disposition: Home, Self-Care Condition: Stable Instructions: Antibiotic Form, Surgical Site Infections (ED) Additional Instructions: take antibiotic as prescribed , follow with your surgeon tomorrow . Patient Language: Algerian Prescriptions: New clindamycin HCl [Cleocin HCl] 300 mg capsule 300 mg PO Q6H Qty: 30 0RF No Action sertraline 50 mg tablet 50 mg PO DAILY Patient Comments: pt stated it has been weeks apple cider vinegar 300 mg Tablet 300 mg PO DAILY oxycodone-acetaminophen [Percocet] 5-325 mg tablet 1 tablet PO Q4H PRN (Reason: pain) Qty: 14 0RF Follow-up/Referrals: Camilo Meyer MD [Physician] - PHYSICIAN,GRAVITY METER OBSERVER [Primary Care Provider] - Time of Disposition: 15:10
[2024-08-10] MEDS: diphenhydrAMINE HCl INJ 50 MG/ML VIAL 25 MG IV PUSH (15:22)
[2024-08-10 15:35] VITALS: BP 132/78; PULSE 88; RESP 16; O2SAT 100
== END 2024-08-10 15:35 | disposition home or self-care (01) ==
PROVIDERS: Emergency Provider Family Medicine
DX: T81.41XA Infection following a procedure, superficial incisional surgical site, initial encounter (principal); L02.211 Cutaneous abscess of abdominal wall; E03.9 Hypothyroidism, unspecified; F41.9 Anxiety disorder, unspecified; F32.A Depression, unspecified; Y83.8 Other surgical procedures as the cause of abnormal reaction of the patient, or of later complication, without mention of misadventure at the time of the procedure; Z79.899 Other long term (current) drug therapy; K59.00 Constipation, unspecified; N21.0 Calculus in bladder
CPT/HCPCS: 36415; 74176; 80053; 83605; 85025; 85610; 87040; 87070; 87075; 87181; 87205; 96365; 96375; 99284; J1200; J3370